=== PATIENT | female | born 1945 | race Two or more races ===

== ENCOUNTER 2018-10-27 13:50 | Emergency (ER) | payer OTHER ==
[~2018-10-27] VITALS: Ht 165.1 cm; Wt 75.7 kg
[2018-10-27 14:57] LABS: Urine Bacteria NONE SEEN /hpf (None Seen); Urine Blood Negative /uL (Negative); Urine Mucus FEW (None Seen); Urine WBC 1 /hpf (0 - 5)
[2018-10-27 15:39] LABS: Basophils # (auto) 0 uL; Basophils % (auto) 0.4 % (0.0-2.0); Eosinophils # (auto) 0 uL; Eosinophils % (auto) 0.2 % (0.0-7.0); Hematocrit 39.1 % (36.0-46.0); Hemoglobin 13.1 g/dL (12.2-16.2); Lymphocytes # (auto) 1.5 uL; Lymphocytes % (auto) 14.7 % (10.0-50.0); Mean Corpuscular Hemoglobin 29.4 pg (28.0-32.0); Mean Corpuscular Hgb Conc. 33.5 g/dL (32.0-36.0); Mean Corpuscular Volume 87.9 fL (80.0-100.0); Monocytes # (auto) 0.6 uL; Monocytes % (auto) 5.9 % (0.0-12.0); Neutrophils # (auto) 7.9 uL; Neutrophils % (auto) 78.8 % (37.0-80.0); Platelet Count (auto) 231 10^3/uL (140-450); Red Blood Cells 4.45 10^6/uL (4.0-5.20); Red Cell Distribution Width 14.4 % (11.8-14.3); White Blood Cell 10.1 10^3/uL (4.4-10.8)
[2018-10-27 16:05] LABS: Albumin 3.9 g/dL (3.4-5.0); Anion Gap 8 (5-15); Blood Urea Nitrogen 18 mg/dL (7-18); Calcium 9.2 mg/dL (8.5-10.1); Carbon Dioxide 26 mmol/L (21-32); Chloride 104 mmol/L (98-107); Glucose 129 mg/dL (74-106); Lipase 195 U/L (73-393); Potassium 3.6 mmol/L (3.5-5.1); Sodium 138 mmol/L (136-145)
[2018-10-27 16:12] LABS: Alanine Aminotransferase 48 U/L (13-56); Alkaline Phosphatase 113 U/L (45-117); Aspartate Aminotransferase 78 U/L (15-37); BUN/Creatinine Ratio 22.8; Bilirubin, Total 0.7 mg/dL (0.2-1.0); GFR African American 92 mL/min; GFR Non-African American 76 mL/min; Total Protein 7.9 g/dL (6.4-8.2)
[2018-10-28] MEDS ORDERED: SODIUM CHLORIDE 0.9% 1,000 ML IV ONE
[2018-10-28 03:06] VITALS: BP 136/72
== END 2018-10-28 04:08 | disposition home or self-care (01) ==
LOC: ER 14:04
DX: N28.1 Cyst of kidney, acquired (principal); I10 Essential (primary) hypertension; Z90.49 Acquired absence of other specified parts of digestive tract; Z98.51 Tubal ligation status
CPT/HCPCS: 36415; 74176; 80053; 81001; 83690; 84484; 85025; 93005

== ENCOUNTER 2019-08-31 09:32 | Inpatient (IN) | payer MEDICARE, OTHER ==
[~2019-08-31] VITALS: Ht 157.5 cm; Wt 69.0 kg
[2019-08-31] MEDS ORDERED: SODIUM CHLORIDE 0.9% 500 ML IV ONE (10:31)
[2019-08-31] MEDS ORDERED: SODIUM CHLORIDE 0.9% 1,000 ML IV ONE (10:31)
[2019-08-31] MEDS ORDERED: ZINC SULFATE 220mg CAP or TAB PO ONE (10:45)
[2019-08-31] MEDS ORDERED: AZITHROMYCIN 500MG/ 250ML 250 ML IV ONE (10:45)
[2019-08-31] MEDS ORDERED: DexAMETHasone SOD PHOS 4 MG/1ML SDV INJ IV ONE (10:45)
[2019-08-31] MEDS ORDERED: cefTRIAXone 1GM/50ML D5W 50 ML IV ONE (10:45)
[2019-08-31] MEDS ORDERED: ASCORBIC ACID 500 MG TAB PO ONE (10:45)
[2019-08-31 11:16] LABS: Basophils # (auto) 0 10 ^3/uL (0-0.2); Basophils % (auto) 0.1 % (0.0-2.0); Eosinophils # (auto) 0 10 ^3/uL (0-0.8); Hematocrit 38.4 % (36.0-46.0); Hemoglobin 12.8 g/dL (12.2-16.2); Lymphocytes # (auto) 0.7 10 ^3/uL (0.4-5.4); Lymphocytes % (auto) 4.4 % (10.0-50.0); Mean Corpuscular Hemoglobin 29.2 pg (28.0-32.0); Mean Corpuscular Hgb Conc. 33.3 g/dL (32.0-36.0); Mean Corpuscular Volume 87.8 fL (80.0-100.0); Monocytes # (auto) 0.3 10 ^3/uL (0-1.3); Monocytes % (auto) 2.2 % (0.0-12.0); Neutrophils # (auto) 14.9 10 ^3/uL (1.6-8.6); Neutrophils % (auto) 93.3 % (37.0-80.0); Platelet Count (auto) 274 10^3/uL (140-450); Red Blood Cells 4.38 10^6/uL (4.0-5.20); Red Cell Distribution Width 14.2 % (11.8-14.3)
[2019-08-31 11:22] LABS: Albumin 2.9 g/dL (3.4-5.0); Anion Gap 7 (5-15); Blood Urea Nitrogen 17 mg/dL (7-18); Calcium 9.1 mg/dL (8.5-10.1); Carbon Dioxide 28 mmol/L (21-32); Chloride 99 mmol/L (98-107); Glucose 171 mg/dL (74-106); Magnesium 2.4 mg/dL (1.6-2.6); Potassium 3.9 mmol/L (3.5-5.1); Sodium 134 mmol/L (136-145)
[2019-08-31 11:30] LABS: Alanine Aminotransferase 51 U/L (13-56); Alkaline Phosphatase 99 U/L (45-117); Aspartate Aminotransferase 28 U/L (15-37); BUN/Creatinine Ratio 19.5; Bilirubin, Total 0.7 mg/dL (0.2-1.0); GFR African American 82 mL/min; GFR Non-African American 68 mL/min; Total Protein 7.5 g/dL (6.4-8.2)
[2019-08-31] MEDS ORDERED: MORPHINE SULF INJ 2 MG/ML SYRINGE 1ML IV PRN (14:00)
[2019-08-31] MEDS ORDERED: DEXTROSE (50%) 50ML SYRG IV PRN (14:00)
[2019-08-31] MEDS ORDERED: TEMAZEPAM 15 MG CAP PO PRN (14:00)
[2019-08-31] MEDS ORDERED: traMADol HCL 50 MG TAB PO PRN (14:00)
[2019-08-31] MEDS ORDERED: ONDANSETRON HCL 4 MG/2 ML VIAL IV PRN (14:00)
[2019-08-31] MEDS ORDERED: NITROGLYCERIN 0.4 MG SL TAB SL PRN (14:00)
[2019-08-31] MEDS ORDERED: ACETAMINOPHEN 500 MG TAB PO PRN ×2 (14:00)
[2019-08-31] MEDS: methylPREDNISolone SOD SUCC 40 MG/ML VL IV SCH (14:56)
[2019-08-31] MEDS: SODIUM CHLORIDE 0.9% 1,000 ML IV SCH (14:56)
[2019-08-31] MEDS: CLINDAMYCIN 600MG IV 50 ML IV SCH ×2 (14:57→22:49)
[2019-08-31 16:33] VITALS: BP 103/51
--- NOTE | 2019-08-31 16:33 | NUR ---
Telemetry admit from ER [place] G[place]IA admitted to Telemetry unit after SBAR received. Patient oriented to JOVANNI VILLAGOMEZ, primary RN, unit, room, bed, and unit policies regarding patient care and visiting hours. Patient now on continuous telemetry monitoring, tele box # 4. Patient placed on bedside oxygen AT 12L via non-rebreather mask, weighed by bedscale and encouraged to call if they need something. All questions and concerns addressed, patient verbalized understanding.
[2019-08-31 17:00] VITALS: BP 103/51
[2019-08-31] MEDS ORDERED: NAPR375T27 PO (17:20)
[2019-08-31] MEDS ORDERED: ENAL2.5T PO (17:20)
[2019-08-31] MEDS ORDERED: PRED20TA2 PO (17:20)
[2019-08-31] MEDS ORDERED: ATOR10TA52 PO (17:20)
[2019-08-31] MEDS ORDERED: GLIP5TAB12 PO (17:20)
[2019-08-31] MEDS ORDERED: GABA100C9 PO (17:20)
[2019-08-31] MEDS ORDERED: ASPI-404 PO (17:20)
[2019-08-31] MEDS ORDERED: SENN-58 PO (17:20)
[2019-08-31] MEDS: ACCU-CHEK COMFORT CURVE STRIP VI SCH (18:17)
[2019-08-31] MEDS: InsuLIN REG 1unit/0.01ml Soln (100units/ml) SC SCH (18:18)
--- NOTE | 2019-08-31 18:47 | NUR ---
PT TOLERATING NON REBREATHER MASK WELL. CHANGED TO OXYMIZER AT 10L. O2 AT 94%. PT TOLERATING WELL. WILL CONTINUE TO MONITOR.
[2019-08-31 22:00] VITALS: BP 134/59
[2019-08-31] MEDS: ALBUTEROL SULF HFA 90MCG INH 200DOSE IN SCH (22:18)
[2019-08-31] MEDS: ENOXAPARIN SOD 40 MG/0.4 ML SYRINGE SC SCH (22:49)
[2019-09-01] VITALS (7 sets, daily range): BP systolic 113–134; BP diastolic 54–84
[2019-09-01] MEDS: ACCU-CHEK COMFORT CURVE STRIP VI SCH ×5 (00:34→21:50)
[2019-09-01] MEDS: InsuLIN REG 1unit/0.01ml Soln (100units/ml) SC SCH ×5 (00:37→21:51)
--- NOTE | 2019-09-01 01:12 | NUR ---
PATIENTS O2 DROPPED DOWN TO 80% AFTER USING RESTROOM, APPLIED NON REBREATHER MASK. PATIENT TOLERATING WELL SATURATING AT 92%. WILL CONTINUE TO MONITOR.
[2019-09-01] MEDS: methylPREDNISolone SOD SUCC 40 MG/ML VL IV SCH ×2 (03:46→14:08)
[2019-09-01] MEDS: SODIUM CHLORIDE 0.9% 1,000 ML IV SCH ×2 (03:47→17:11)
[2019-09-01] MEDS: ALBUTEROL SULF HFA 90MCG INH 200DOSE IN SCH ×3 (05:37→22:50)
[2019-09-01 05:38] LABS: Basophils # (auto) 0 10 ^3/uL (0-0.2); Basophils % (auto) 0.1 % (0.0-2.0); Eosinophils # (auto) 0 10 ^3/uL (0-0.8); Hematocrit 33.9 % (36.0-46.0); Hemoglobin 11.5 g/dL (12.2-16.2); Lymphocytes # (auto) 0.4 10 ^3/uL (0.4-5.4); Lymphocytes % (auto) 2.9 % (10.0-50.0); Mean Corpuscular Hemoglobin 30.1 pg (28.0-32.0); Mean Corpuscular Hgb Conc. 34.1 g/dL (32.0-36.0); Mean Corpuscular Volume 88.4 fL (80.0-100.0); Monocytes # (auto) 0.3 10 ^3/uL (0-1.3); Neutrophils # (auto) 13.3 10 ^3/uL (1.6-8.6); Platelet Count (auto) 276 10^3/uL (140-450); Red Blood Cells 3.83 10^6/uL (4.0-5.20)
[2019-09-01] MEDS: CLINDAMYCIN 600MG IV 50 ML IV SCH ×3 (05:38→21:54)
[2019-09-01 05:59] LABS: Albumin 2.4 g/dL (3.4-5.0); BUN/Creatinine Ratio 19.7; Calcium 8.6 mg/dL (8.5-10.1); Potassium 3.8 mmol/L (3.5-5.1)
[2019-09-01 06:02] LABS: Bilirubin, Total 0.5 mg/dL (0.2-1.0); Total Protein 6.5 g/dL (6.4-8.2)
--- NOTE | 2019-09-01 08:35 | NUR ---
OPENING SHIFT NOTE Resumed care of patient. PT is alert and oriented. No S/S of distress/SOB. PT on 10L O2 via Oxymizer. Instructed on POC and to call for assist PRN. Bed in lowest locked position, call light within reach, side rails up x2, fall precautions in place. Will continue to monitor for changes Q1hr and PRN.
[2019-09-01] MEDS: ENOXAPARIN SOD 40 MG/0.4 ML SYRINGE SC SCH ×2 (10:34→21:54)
[2019-09-01] MEDS: levoFLOXacin 500MG 100 ML IV SCH (10:34)
[2019-09-01] MEDS: ASCORBIC ACID 1,000 MG TAB PO SCH (10:35)
[2019-09-01] MEDS: CHOLECALCIFEROL (VITD3) 1,000UNIT=25mCg TAB PO SCH (10:35)
[2019-09-01] MEDS: ZINC SULFATE 220mg CAP or TAB PO SCH (10:35)
[2019-09-01] MEDS ORDERED: LEVOTHYROXINE SODIUM 25 MCG TAB PO ONE (11:00)
--- NOTE | 2019-09-01 14:45 | NUR ---
RT NOTE: WHILE IN WITH NEXT DOOR PT, RN STATED THAT WHILE USING THE CAMODE, SPO2 DROPPED TO MID 70s. HE PLACED PT ONTO 15L NON-REBREATHER. PT DENIES ANY SOB. SPO2 HOLDING AT 91-92%. AT THIS TIME, PT IS LEFT ON NRB. WILL CONTINUE TO MONITOR.
--- NOTE | 2019-09-01 15:15 | NUR ---
PT 02 DESAT TO 79% WHILE USING BSC. PLACED ON NON REBREATHER AT 13L. PT 02 SAT NOW AT 91%. RT ASSESSED PT.
--- NOTE | 2019-09-01 22:59 | NUR ---
Opening Shift Note Assumed care of patient, awake and alert. No S/S of distress/SOB or pain. Patient on 14L Oxymizer Instructed on POC and to call for assist PRN, will continue to monitor for changes Q1hr and PRN.
[2019-09-02] MEDS: methylPREDNISolone SOD SUCC 40 MG/ML VL IV SCH ×3 (01:59→21:07)
[2019-09-02 05:15] VITALS: BP 136/68
[2019-09-02] MEDS: ALBUTEROL SULF HFA 90MCG INH 200DOSE IN SCH ×3 (06:00→23:23)
[2019-09-02] MEDS: SODIUM CHLORIDE 0.9% 1,000 ML IV SCH (06:00)
[2019-09-02] MEDS: CLINDAMYCIN 600MG IV 50 ML IV SCH (06:25)
[2019-09-02] MEDS: ACCU-CHEK COMFORT CURVE STRIP VI SCH ×4 (06:35→23:24)
[2019-09-02] MEDS: InsuLIN REG 1unit/0.01ml Soln (100units/ml) SC SCH ×4 (06:35→23:25)
[2019-09-02] MEDS ORDERED: LEVOTHYROXINE SODIUM 25 MCG TAB PO SCH (07:00)
--- NOTE | 2019-09-02 07:04 | NUR ---
Closing Note Patient status has not change, endorsed care to dayshift nurse.
[2019-09-02 08:00] VITALS: BP 122/69
[2019-09-02 09:13] VITALS: BP 122/69
[2019-09-02] MEDS: levoFLOXacin 500MG 100 ML IV SCH (10:00)
[2019-09-02] MEDS: ZINC SULFATE 220mg CAP or TAB PO SCH (10:01)
[2019-09-02] MEDS: ASCORBIC ACID 1,000 MG TAB PO SCH (10:01)
[2019-09-02] MEDS: CHOLECALCIFEROL (VITD3) 1,000UNIT=25mCg TAB PO SCH (10:02)
[2019-09-02] MEDS: ENOXAPARIN SOD 40 MG/0.4 ML SYRINGE SC SCH ×2 (10:02→23:23)
[2019-09-02] MEDS ORDERED: POTASSIUM CHL 20 Meq TABLET PO ONE (12:30)
[2019-09-02] MEDS ORDERED: FUROSEMIDE 40 MG/4 ML VIAL IV ONE (12:30)
[2019-09-02] MEDS ORDERED: DEXTROSE (50%) 50ML SYRG IV PRN (12:45)
[2019-09-02 13:00] VITALS: BP 119/76
[2019-09-02 13:58] LABS: Ferritin 436.4 ng/mL (10-322); Free T4 (Free Thyroxine) 0.55 ng/dL (0.89-1.76)
[2019-09-02 13:59] LABS: Free T3 0.44 pg/mL (2.3-4.2)
[2019-09-02 16:59] VITALS: BP 115/71
[2019-09-02] MEDS: Glucerna Carbsteady SHAKE Chocolate 8oz PO SCH (17:30)
--- NOTE | 2019-09-02 20:00 | NUR ---
Opening Shift Note Assumed care of patient, awake and alert x4. Patient is on 15L/min nonrebreather, SPO2: 92% at this time. Patient denies pain or shortness of breath at this time. No sign/symptoms of distress noted or verbalized at this time. Instructed on plan of care and encouraged to call for assistance as needed, patient verbalized understanding. Bed is locked in lowest position, side rails x 2 are up, call light is within reach, and bed alarm is on.
[2019-09-02] MEDS: diphenhdrAMINE HCL 50 MG/1 ML VL IV SCH (21:06)
[2019-09-02] MEDS: ACETAMINOPHEN 650 mg PER 20 mL UD PO SCH (21:07)
[2019-09-02] MEDS: TOCILIZUMAB 400 MG in SODIUM CHL 0.9% 80 ML IV SCH (21:41)
[2019-09-02 22:00] VITALS: BP 112/64
[2019-09-02] MEDS: INSULIN LANTUS (GLARGINE) 1 /0.01ml (100units/ml) SC SCH (23:24)
--- NOTE | 2019-09-03 02:00 | NUR ---
Convalescent Plasma Per blood bank no update on convalescent plasma yet.
[2019-09-03] MEDS: methylPREDNISolone SOD SUCC 40 MG/ML VL IV SCH ×3 (02:44→14:00)
[2019-09-03 05:00] VITALS: BP 127/80
[2019-09-03] MEDS: LEVOTHYROXINE SODIUM 50 MCG TAB PO SCH (06:10)
[2019-09-03] MEDS: ALBUTEROL SULF HFA 90MCG INH 200DOSE IN SCH ×3 (06:10→22:23)
[2019-09-03] MEDS: ACCU-CHEK COMFORT CURVE STRIP VI SCH ×4 (06:23→22:39)
[2019-09-03] MEDS: InsuLIN REG 1unit/0.01ml Soln (100units/ml) SC SCH ×4 (06:24→22:43)
[2019-09-03 08:00] VITALS: BP 114/51
[2019-09-03] MEDS: levoFLOXacin 500MG 100 ML IV SCH (08:46)
[2019-09-03] MEDS: ASCORBIC ACID 1,000 MG TAB PO SCH (08:46)
[2019-09-03] MEDS: Glucerna Carbsteady SHAKE Chocolate 8oz PO SCH ×2 (08:46→17:40)
[2019-09-03] MEDS: ZINC SULFATE 220mg CAP or TAB PO SCH (08:46)
[2019-09-03] MEDS: ENOXAPARIN SOD 40 MG/0.4 ML SYRINGE SC SCH ×2 (08:47→22:24)
[2019-09-03] MEDS: CHOLECALCIFEROL (VITD3) 1,000UNIT=25mCg TAB PO SCH (08:47)
[2019-09-03 09:00] VITALS: BP 114/51
[2019-09-03] MEDS ORDERED: ACETAMINOPHEN 650 mg PER 20 mL UD PO ONE (10:30)
[2019-09-03] MEDS ORDERED: diphenhdrAMINE HCL 50 MG/1 ML VL IV ONE (10:30)
[2019-09-03] MEDS ORDERED: methylPREDNISolone SOD SUCC 40 MG/ML VL IV ONE (10:30)
[2019-09-03] MEDS: ACETAMINOPHEN 650 mg PER 20 mL UD PO SCH (11:00)
[2019-09-03] MEDS: diphenhdrAMINE HCL 50 MG/1 ML VL IV SCH (11:00)
[2019-09-03] MEDS: TOCILIZUMAB 400 MG in SODIUM CHL 0.9% 80 ML IV SCH (11:41)
--- NOTE | 2019-09-03 12:54 | NUR ---
Nutrition Assessment Notes please see attached link for complete assessment Est energy needs BW 72 [id number] kcal (23-25kcal/kg), Est protein needs: 72-79g (1.0-1.1g/kg BW). Will reassess prn Addendum: 09/03/19 at [address] Amended: Links added.
[2019-09-03 13:00] VITALS: BP 113/65
[2019-09-03 17:00] VITALS: BP 106/66
--- NOTE | 2019-09-03 20:00 | NUR ---
Opening Shift Note Assumed care of patient, awake and alert x4. Patient is on 15L/min nonrebreather, SPO2: 90% at this time. Patient denies pain or shortness of breath at this time. No sign/symptoms of distress noted or verbalized at this time. Instructed on plan of care and encouraged to call for assistance as needed, patient verbalized understanding. Bed is locked in lowest position, side rails x 2 are up, call light is within reach, and bed alarm is on.
[2019-09-03 22:00] VITALS: BP 114/64
[2019-09-03] MEDS: INSULIN LANTUS (GLARGINE) 1 /0.01ml (100units/ml) SC SCH (22:42)
[2019-09-04] VITALS (7 sets, daily range): BP systolic 105–132; BP diastolic 57–76
--- NOTE | 2019-09-04 00:19 | NUR ---
Spoke with Blood Bank RE: Convalescent Plasma Spoke with Beto from blood bank regarding status on convalescent plasma. Per Beto, we are still waiting on [facility].
--- NOTE | 2019-09-04 00:30 | NUR ---
Low Oxygen Saturation Patient's oxygen saturation is sustaining between 86-89% on 15L/min nonrebreather at this time.This RN has repositioned patient and instructed patient to take deep breaths, no improvement in oxygen saturation noted. Patient's HR is 67 and RR is 24 at this time. Patient is laying in bed with even and unlabored respirations. Patient denies shortness of breath at this time. No sign/symptoms of distress noted or verbalized at this time. No use of accessory muscles noted at this time. Will page respiratory therapist.
--- NOTE | 2019-09-04 00:37 | NUR ---
Spoke with Respiratory Therapist RE: Low Oxygen Saturation Spoke with RT Julissa regarding patient's oxygen saturation. RT recommends proning patient. Per RT she will speak to her director regarding patient's oxygen saturation.
--- NOTE | 2019-09-04 00:50 | NUR ---
Attempted to Prone Patient Attempted to prone patient per RT's recommendation due to oxygen desaturation. Patient was not able to tolerate proning. Patient is now laying on her lateral right side, patient is tolerating well. Oxygen saturation at this time is 92% on 15L/min nonrebreather. Patient denies shortness of breath at this time. No sign/symptoms of distress noted or verbalized at this time. Bed is locked in lowest position, side rails x 2 are up, call light is within reach, and bed alarm is on. Will continue care.
--- NOTE | 2019-09-04 01:42 | NUR ---
Rounds Patient is laying on her lateral right side, eyes closed, with even and unlabored respirations. SPO2: 94% on 15L/min nonrebreather at this time. No sign/symptoms of distress noted at this time. Will continue care.
[2019-09-04] MEDS: methylPREDNISolone SOD SUCC 40 MG/ML VL IV SCH ×2 (01:51→15:12)
--- NOTE | 2019-09-04 03:50 | NUR ---
Rounds Patient is laying on her lateral side, eyes closed, with even and unlabored respirations. SPO2: 92% on 15L/min nonrebreather at this time. No sign/symptoms of distress noted at this time. Will continue care.
[2019-09-04] MEDS: InsuLIN REG 1unit/0.01ml Soln (100units/ml) SC SCH ×4 (06:26→22:05)
[2019-09-04] MEDS: ACCU-CHEK COMFORT CURVE STRIP VI SCH ×4 (06:26→21:59)
[2019-09-04] MEDS: LEVOTHYROXINE SODIUM 50 MCG TAB PO SCH (06:26)
[2019-09-04] MEDS: ALBUTEROL SULF HFA 90MCG INH 200DOSE IN SCH ×3 (06:26→23:39)
--- NOTE | 2019-09-04 06:26 | NUR ---
IV Removal IV to left AC DC'd. IV DC'd with clean sterile technique, catheter fully intact. Pressure dressing applied to site. Patient tolerated well.
[2019-09-04 06:45] LABS: Basophils # (auto) 0 10 ^3/uL (0-0.2); Basophils % (auto) 0.1 % (0.0-2.0); Eosinophils # (auto) 0 10 ^3/uL (0-0.8); Hematocrit 37.2 % (36.0-46.0); Hemoglobin 12.8 g/dL (12.2-16.2); Lymphocytes # (auto) 0.5 10 ^3/uL (0.4-5.4); Lymphocytes % (auto) 4.3 % (10.0-50.0); Mean Corpuscular Hemoglobin 29.7 pg (28.0-32.0); Mean Corpuscular Hgb Conc. 34.2 g/dL (32.0-36.0); Mean Corpuscular Volume 86.6 fL (80.0-100.0); Monocytes # (auto) 0.2 10 ^3/uL (0-1.3); Monocytes % (auto) 1.4 % (0.0-12.0); Neutrophils % (auto) 94.2 % (37.0-80.0); Platelet Count (auto) 424 10^3/uL (140-450); White Blood Cell 10.6 10^3/uL (4.4-10.8)
[2019-09-04 07:09] LABS: Albumin 2.4 g/dL (3.4-5.0); Bilirubin, Total 0.6 mg/dL (0.2-1.0); Calcium 9.3 mg/dL (8.5-10.1); Total Protein 6.8 g/dL (6.4-8.2)
--- NOTE | 2019-09-04 07:20 | NUR ---
Closing Shift Note Patient is on nonrebreather 15L/min, SPO2: 92% at this time. No sign/symptoms of distress noted or verbalized at this time. Patient denies shortness of breath at this time. Endorsed patient care to David JAIN.
[2019-09-04] MEDS: Glucerna Carbsteady SHAKE Chocolate 8oz PO SCH ×2 (09:54→18:09)
[2019-09-04] MEDS: ZINC SULFATE 220mg CAP or TAB PO SCH (10:08)
[2019-09-04] MEDS: levoFLOXacin 500MG 100 ML IV SCH (10:09)
[2019-09-04] MEDS: ENOXAPARIN SOD 40 MG/0.4 ML SYRINGE SC SCH ×2 (10:09→21:59)
[2019-09-04] MEDS: CHOLECALCIFEROL (VITD3) 1,000UNIT=25mCg TAB PO SCH (10:09)
[2019-09-04] MEDS: ASCORBIC ACID 1,000 MG TAB PO SCH (10:09)
[2019-09-04] MEDS ORDERED: FUROSEMIDE 40 MG/4 ML VIAL IV ONE (13:45)
--- NOTE | 2019-09-04 14:15 | NUR ---
VERBAL CONSENT FOR HYDROXYCHLOROQUINE OBTAINED FROM PATIENT BY SUSY LOZOYA. RISKS EXPLAINED WITH PATIENT VERBALIZING UNDERSTANDING TO SAID NURSE
--- NOTE | 2019-09-04 14:58 | NUR ---
assessment Patient is a 74 year old female who is Covid positive. Per patients daughter Candelaria prior to admission patient lived home with her and family and was independent. Patient has oxygen for home use. Per Candelaria patient had a fever and became confused so she called 911. Patient was admitted. Patient is now on 15L of oxygen. I informed Candelaria patients post discharge needs to be determined closer to discharge. I will continue to monitor and follow up as appropriate. Candelaria verbalized understanding. Addendum: 09/04/19 at 1507 by Jerilyn IGLESIAS Amended: Links added.
[2019-09-04] MEDS: FUROSEMIDE 40 MG/4 ML VIAL IV SCH (18:12)
--- NOTE | 2019-09-04 19:30 | NUR ---
OPENING SHIFT NOTE Assumed care of patient who is Alert and oriented; Singaporean speaking. Currently on 15L via non-rebreather. Reports SOB with exertion and generalized weakness/fatigue. PIV in left forearm is intact and patent. Flushed with 10ml NS. patient is ambulatory at baseline, however requires moderate assistance to BSC at this time due to weakness and fatigue. Bed is in low locked position with side rails up x2. Call light is within reach and patient encouraged to call for assistance when needed. Will continue to monitor for changes PRN.
--- NOTE | 2019-09-04 20:45 | NUR ---
Received call from blood bank informing that convalescent plasma is available. Requested call back when ready to have defrosted.
--- NOTE | 2019-09-04 21:30 | NUR ---
IV insertion IV access obtained, via clean sterile technique by inserting 20 gauge catheter at left wrist after 1 attempt. IV secured properly. No trauma to site. Patient tolerated well.
[2019-09-04] MEDS: hydrOXYchloroQUINE SULFATE 200 MG TAB PO SCH (21:58)
[2019-09-04] MEDS: INSULIN LANTUS (GLARGINE) 1 /0.01ml (100units/ml) SC SCH (22:06)
[2019-09-05] VITALS (8 sets, daily range): BP systolic 88–125; BP diastolic 60–75
[2019-09-05] MEDS: methylPREDNISolone SOD SUCC 40 MG/ML VL IV SCH ×2 (02:19→13:48)
--- NOTE | 2019-09-05 03:53 | NUR ---
TRANSFUSION COMPLETE Convalescent plasma transfusion complete. Patient tolerated well. No adverse reactions noted.
--- NOTE | 2019-09-05 05:16 | NUR ---
CONVALESCENT PLASMA Plasma transfusion initiated after measuring vital signs and verifying with two RNs. Addendum: 09/05/19 at 0519 by KAREN JOY RN RN incorrect time. Correct time is 0151.
[2019-09-05] MEDS: FUROSEMIDE 40 MG/4 ML VIAL IV SCH ×2 (06:39→17:48)
[2019-09-05] MEDS: LEVOTHYROXINE SODIUM 50 MCG TAB PO SCH (06:39)
[2019-09-05] MEDS: ACCU-CHEK COMFORT CURVE STRIP VI SCH ×4 (06:40→22:15)
[2019-09-05] MEDS: InsuLIN REG 1unit/0.01ml Soln (100units/ml) SC SCH ×4 (06:42→22:17)
--- NOTE | 2019-09-05 07:27 | NUR ---
LOW o2 SATURATION Patient O2 Saturation is at 81% on 15L non-rebreather. Patient is currently on the bed welch and non-rebreather mask poorly fitted on face. Mask adjusted, patient taken off bedpan and cleaned. Encouraged self proning, however patient states that she cannot tolerated lying prone. Patient positioned onto her right side. Spo2 increased to 95%
[2019-09-05] MEDS: ALBUTEROL SULF HFA 90MCG INH 200DOSE IN SCH ×3 (07:40→22:20)
--- NOTE | 2019-09-05 07:40 | NUR ---
RT NOTE: ATTEMPTED TO TITRATE PT TO SIMPLE MASK FROM NON-REBREATHER BUT SPO2 IMMEDIATELY DROPPED FROM 91% TO MID 80s. PLACED BACK ONTO 15L NRB. WILL CONTINUE TO MONITOR.
[2019-09-05] MEDS: Glucerna Carbsteady SHAKE Chocolate 8oz PO SCH ×2 (08:00→17:48)
[2019-09-05] MEDS: CHOLECALCIFEROL (VITD3) 1,000UNIT=25mCg TAB PO SCH (10:29)
[2019-09-05] MEDS: ENOXAPARIN SOD 40 MG/0.4 ML SYRINGE SC SCH ×2 (10:30→22:15)
[2019-09-05] MEDS: ASCORBIC ACID 1,000 MG TAB PO SCH (10:30)
[2019-09-05] MEDS: ZINC SULFATE 220mg CAP or TAB PO SCH (10:30)
[2019-09-05] MEDS: hydrOXYchloroQUINE SULFATE 200 MG TAB PO SCH ×2 (10:30→22:14)
[2019-09-05] MEDS: levoFLOXacin 500MG 100 ML IV SCH (10:31)
--- NOTE | 2019-09-05 19:30 | NUR ---
opening note pt A&Ox4. pt on 15L non rebreather mask. pt denies pain at this time. pt is very weak, and is unable to reach BSC without spo2 levels decreasing. pt advised that a bed welch would be a better option, to avoid O2 desaturation. POC discussed. bed in low locked position, call light within reach.
[2019-09-05] MEDS: INSULIN LANTUS (GLARGINE) 1 /0.01ml (100units/ml) SC SCH (22:18)
[2019-09-06] MEDS: methylPREDNISolone SOD SUCC 40 MG/ML VL IV SCH ×2 (01:48→13:56)
[2019-09-06 05:57] VITALS: BP 107/68
[2019-09-06] MEDS: ACCU-CHEK COMFORT CURVE STRIP VI SCH ×4 (06:09→22:08)
[2019-09-06] MEDS: LEVOTHYROXINE SODIUM 50 MCG TAB PO SCH (06:10)
[2019-09-06] MEDS: FUROSEMIDE 40 MG/4 ML VIAL IV SCH ×2 (06:10→17:35)
[2019-09-06] MEDS: InsuLIN REG 1unit/0.01ml Soln (100units/ml) SC SCH ×4 (06:11→22:00)
--- NOTE | 2019-09-06 07:15 | NUR ---
Closing note Pt is awake and alert x4. respirations are even and nonlabored on 15L non rebreather mask. Spo2 saturation is currently at 89-90. No fever at this time. no c/o pain or discomfort. Endorsed care to day shift RN. Bed in low locked position, call light within reach.
[2019-09-06] MEDS: ALBUTEROL SULF HFA 90MCG INH 200DOSE IN SCH ×3 (07:18→22:00)
[2019-09-06 08:37] VITALS: BP 109/67
[2019-09-06] MEDS: Glucerna Carbsteady SHAKE Chocolate 8oz PO SCH ×2 (11:12→17:34)
[2019-09-06] MEDS: ENOXAPARIN SOD 40 MG/0.4 ML SYRINGE SC SCH (11:12)
[2019-09-06] MEDS: hydrOXYchloroQUINE SULFATE 200 MG TAB PO SCH ×2 (11:12→22:08)
[2019-09-06] MEDS: levoFLOXacin 500MG 100 ML IV SCH (11:12)
[2019-09-06] MEDS: ZINC SULFATE 220mg CAP or TAB PO SCH (11:12)
[2019-09-06] MEDS: ASCORBIC ACID 1,000 MG TAB PO SCH (11:12)
[2019-09-06] MEDS: CHOLECALCIFEROL (VITD3) 1,000UNIT=25mCg TAB PO SCH (11:13)
[2019-09-06 12:30] VITALS: BP 101/68
[2019-09-06] MEDS ORDERED: levoFLOXacin 500MG 100 ML IV SCH (14:45)
--- NOTE | 2019-09-06 15:45 | NUR ---
Nutrition Followup Notes Pt wt is 72.2 kg Unable to speak to pt d/t pt is positive for COVID. Pt is with a CCHO 60g diet, appetite is very poor aeb ave 9% PO intake over 5 meals. Will continue to monitor PO status, skin status, pertinent labs and weight trends. Will f/u in 3-5 days. Est energy needs BW 72 [id number] kcal (23-25kcal/kg), Est protein needs: 72-79g (1.0-1.1g/kg BW). Will reassess prn LABS: Gluc 152 H, A1c 6.8 H, Alb 2.4 L GI: Pt had 1 BM on 09/05 per RN doc BS: 15 mod risk. Refer to wound assessment report for full details. PES: Altered nutrition related lab values r.t current chronic medical condition aeb hyperglycemia mod hypoalb Comments 1) Refer to CDE on DC 2) Continue to closely monitor pt PO intake to meet at least 75% of meals 3) Continue current plan of care
[2019-09-06 16:59] VITALS: BP 104/31
--- NOTE | 2019-09-06 19:30 | NUR ---
Opening note pt is A&Ox4, and Bulgarian speaking. pt is on 15L non rebreather. SpO2 saturations are at 89%. pt denies pain or discomfort. bed in low locked position, call light within reach.
[2019-09-06 19:44] VITALS: BP 104/31
[2019-09-06 21:51] VITALS: BP 101/53
[2019-09-06] MEDS: ENOXAPARIN SOD 100 MG/1 ML SYRINGE SC SCH (22:08)
[2019-09-06] MEDS: INSULIN LANTUS (GLARGINE) 1 /0.01ml (100units/ml) SC SCH (22:13)
[2019-09-07 05:00] VITALS: BP 105/63
[2019-09-07 05:11] LABS: Hematocrit 44.7 % (36.0-46.0); Mean Corpuscular Hgb Conc. 33.7 g/dL (32.0-36.0); Mean Corpuscular Volume 86.2 fL (80.0-100.0); Platelet Count (auto) 430 10^3/uL (140-450); Red Blood Cells 5.19 10^6/uL (4.0-5.20); Red Cell Distribution Width 13.6 % (11.8-14.3)
[2019-09-07 05:30] LABS: Potassium 3.1 mmol/L (3.5-5.1)
[2019-09-07 05:35] LABS: Band Neutrophils % (manual) 0; Basophils % (manual) 0 (0.0-2.0); Blast Cells 0; Eosinophils % (manual) 0 (0-7); Metamyelocytes % 0; Myelocytes % 0; Promyelocytes % 0; Reactive Lymphocytes 0
[2019-09-07 05:36] LABS: BUN/Creatinine Ratio 42.2; Calcium 9.7 mg/dL (8.5-10.1)
[2019-09-07] MEDS: LEVOTHYROXINE SODIUM 50 MCG TAB PO SCH (06:20)
[2019-09-07] MEDS: ACCU-CHEK COMFORT CURVE STRIP VI SCH ×4 (06:20→22:11)
[2019-09-07] MEDS: InsuLIN REG 1unit/0.01ml Soln (100units/ml) SC SCH ×4 (06:20→22:18)
[2019-09-07] MEDS: FUROSEMIDE 40 MG/4 ML VIAL IV SCH ×2 (06:22→17:29)
[2019-09-07 06:36] LABS: Lymphocytes % (manual) 9 (10.0-50.0); Monocytes % (manual) 2 (0-12)
--- NOTE | 2019-09-07 07:13 | NUR ---
Closing note pt resting in semi fowlers with HOB at 30 degrees. respirations even and nonlabored on 15L non rebreather mask. spo2 saturation is 90%. pt denies pain or discomfort. Bed in low locked position, call light within reach. Endorsed care to day shift RN.
--- NOTE | 2019-09-07 07:59 | NUR ---
OPENING SHIFT NOTE Assumed care of patient. PT is awake and alert x4. Patient is on o2 at 15L via nonrebreather. No sign/symptoms of distress noted. Instructed on plan of care and encouraged to call for assistance as needed, patient verbalized understanding. Bed is locked in lowest position, side rails x 2 are up, call light is within reach, and bed alarm is on. Will continue to monitor.
[2019-09-07 09:00] VITALS: BP 98/71
[2019-09-07] MEDS: ALBUTEROL SULF HFA 90MCG INH 200DOSE IN SCH ×3 (09:19→23:11)
[2019-09-07] MEDS: Glucerna Carbsteady SHAKE Chocolate 8oz PO SCH ×2 (10:05→17:28)
[2019-09-07] MEDS: ZINC SULFATE 220mg CAP or TAB PO SCH (10:05)
[2019-09-07] MEDS: PANTOPRAZOLE 40 MG TAB PO SCH (10:06)
[2019-09-07] MEDS: hydrOXYchloroQUINE SULFATE 200 MG TAB PO SCH ×2 (10:06→22:10)
[2019-09-07] MEDS: ENOXAPARIN SOD 100 MG/1 ML SYRINGE SC SCH (10:06)
[2019-09-07] MEDS: CHOLECALCIFEROL (VITD3) 1,000UNIT=25mCg TAB PO SCH (10:06)
[2019-09-07] MEDS: ASCORBIC ACID 1,000 MG TAB PO SCH (10:06)
[2019-09-07 13:00] VITALS: BP 105/67
[2019-09-07] MEDS ORDERED: PIPERACILLIN-TAZOB 3.375GM 100 ML IV ONE (15:45)
[2019-09-07] MEDS ORDERED: VANCOMYCIN PER PHARMACY 0 MG IV SCH (15:45)
[2019-09-07 17:00] VITALS: BP 99/60
[2019-09-07] MEDS ORDERED: PIPERACILLIN-TAZOB 3.375GM 100 ML IV SCH (18:00)
--- NOTE | 2019-09-07 19:30 | NUR ---
OPENING SHIFT NOTE Assumed care of patient who is A&O x4, Slovenian speaking. Currently on 15L non- rebreather, currently sating at 90% Noted desaturation with activity. PIV in left wrist is intact and patent. Flushed with 10ml NS. Patient is currently on bedrest due to severe fatigue and weakness. Bed is in low locked position with side rails up x2. Call light is within reach. Patient encouraged to call for assistance when needed. Will continue to monitor for changes PRN.
[2019-09-07 20:00] VITALS: BP 107/61
[2019-09-07] MEDS ORDERED: VANCOMYCIN 1GM/250ML 250 ML IV ONE (20:00)
[2019-09-07 22:00] VITALS: BP 107/61
[2019-09-07] MEDS: ENOXAPARIN SOD 80 MG/0.8ML SYRINGE SC SCH (22:10)
[2019-09-07] MEDS: INSULIN LANTUS (GLARGINE) 1 /0.01ml (100units/ml) SC SCH (22:19)
[2019-09-08] MEDS: PIPERACILLIN-TAZOB 3.375GM 100 ML IV SCH ×4 (00:49→18:06)
[2019-09-08 05:00] VITALS: BP 88/60
[2019-09-08 05:37] LABS: Hematocrit 48.5 % (36.0-46.0); Hemoglobin 16.3 g/dL (12.2-16.2); Mean Corpuscular Hemoglobin 28.9 pg (28.0-32.0); Mean Corpuscular Hgb Conc. 33.5 g/dL (32.0-36.0); Mean Corpuscular Volume 86.2 fL (80.0-100.0); Platelet Count (auto) 446 10^3/uL (140-450); Red Blood Cells 5.63 10^6/uL (4.0-5.20); Red Cell Distribution Width 13.8 % (11.8-14.3); White Blood Cell 16.3 10^3/uL (4.4-10.8)
[2019-09-08 05:52] LABS: Band Neutrophils % (manual) 0; Basophils % (manual) 0 (0.0-2.0); Blast Cells 0; Metamyelocytes % 0; Myelocytes % 0; Promyelocytes % 0; Reactive Lymphocytes 0
[2019-09-08 05:53] LABS: Albumin 3.1 g/dL (3.4-5.0); Calcium 9.3 mg/dL (8.5-10.1)
[2019-09-08 05:57] LABS: BUN/Creatinine Ratio 40.5; Bilirubin, Total 1.1 mg/dL (0.2-1.0); Total Protein 7.2 g/dL (6.4-8.2)
[2019-09-08 06:00] LABS: Potassium 2.6 mmol/L (3.5-5.1)
[2019-09-08] MEDS: FUROSEMIDE 40 MG/4 ML VIAL IV SCH ×2 (06:02→18:00)
--- NOTE | 2019-09-08 06:02 | NUR ---
BLOOD PRESSURE CELL RELINER obtained and reported a blood pressure of 88/60, HR 84. Reassessed by this RN and blood pressure on right arm is 108/67, HR 89.
--- NOTE | 2019-09-08 06:04 | NUR ---
CRITICAL LAB Received call from Cintia in lab, reporting a Critical Potassium level of 2.6. Hospitalist paged to notify.
--- NOTE | 2019-09-08 06:26 | NUR ---
HOSPITALIST Received call from Hospitalist, Dr. Oseguera. New orders received. Read back and verified.
[2019-09-08] MEDS: ALBUTEROL SULF HFA 90MCG INH 200DOSE IN SCH ×3 (06:45→23:45)
[2019-09-08] MEDS: InsuLIN REG 1unit/0.01ml Soln (100units/ml) SC SCH ×4 (07:00→22:00)
[2019-09-08 07:05] LABS: Eosinophils % (manual) 1 (0-7); Lymphocytes % (manual) 6 (10.0-50.0); Monocytes % (manual) 2 (0-12)
--- NOTE | 2019-09-08 07:10 | NUR ---
IV insertion IV access obtained, via clean sterile technique by inserting 20 gauge catheter at rigth wrist after 1 attempt. IV secured properly. No trauma to site. Patient tolerated well.
[2019-09-08] MEDS: LEVOTHYROXINE SODIUM 50 MCG TAB PO SCH (07:12)
[2019-09-08] MEDS: POTASSIUM CHL 20MEQ/100ML 100 ML IV SCH ×5 (07:12→22:09)
[2019-09-08] MEDS: ACCU-CHEK COMFORT CURVE STRIP VI SCH ×4 (07:12→21:48)
[2019-09-08 08:46] VITALS: BP 102/57
--- NOTE | 2019-09-08 09:44 | NUR ---
PT C/O DRYNESS TO LIPS. DRY BLOOD OBSERVED ON LIPS. PT STATED THAT LIPS ARE DRY FROM O2 USE. PT GIVEN LIP BALM. WILL CONTINUE TO MONITOR.
[2019-09-08] MEDS: hydrOXYchloroQUINE SULFATE 200 MG TAB PO SCH ×2 (11:04→21:48)
[2019-09-08] MEDS: Glucerna Carbsteady SHAKE Chocolate 8oz PO SCH ×2 (11:04→18:05)
[2019-09-08] MEDS: ENOXAPARIN SOD 80 MG/0.8ML SYRINGE SC SCH ×2 (11:04→21:48)
[2019-09-08] MEDS: ZINC SULFATE 220mg CAP or TAB PO SCH (11:04)
[2019-09-08] MEDS: PANTOPRAZOLE 40 MG TAB PO SCH (11:04)
[2019-09-08] MEDS: ASCORBIC ACID 1,000 MG TAB PO SCH (11:04)
[2019-09-08] MEDS: CHOLECALCIFEROL (VITD3) 1,000UNIT=25mCg TAB PO SCH (11:05)
[2019-09-08] MEDS ORDERED: POTASSIUM EFFERVESENT TAB 25 MEQ PO ONE (11:15)
[2019-09-08 12:22] VITALS: BP 94/52
[2019-09-08] MEDS ORDERED: VANCOMYCIN 750mg/250ml 250 ML IV ONE (13:15)
--- NOTE | 2019-09-08 15:42 | NUR ---
02 TITRATED DOWN TO 12L VIA NON REBREATHER. PT 02 SAT BELOW 92%. PT NOW ON 13L VIA NO NON REBREATHER MASK. O2 SAT IS 93%. WILL CONTINUE TO MONITOR.
[2019-09-08 17:20] VITALS: BP 92/50
--- NOTE | 2019-09-08 18:41 | NUR ---
PT TOLERATING K RIDER INFUSION AT 25ML/HR. WILL ENDORSE BAG 3/3 TO NIGHT NURSE.
[2019-09-08] MEDS: POTASSIUM EFFERVESENT TAB 25 MEQ PO SCH (21:48)
[2019-09-08] MEDS: INSULIN LANTUS (GLARGINE) 1 /0.01ml (100units/ml) SC SCH (22:00)
--- NOTE | 2019-09-08 22:00 | NUR ---
BLOOD SUGAR Blood glucose measured and is 71mg/dl. Lantus held and patient given tony crackers and milk. Will reassess.
[2019-09-08] MEDS ORDERED: POTASSIUM CHL 20MEQ/100ML 100 ML IV ONE (22:01)
--- NOTE | 2019-09-08 22:59 | NUR ---
BLOOD PRESSURE RECEIVABLE CLERK reported a blood pressure of 83/56. Reassessed by this RN and is 93/50, HR 90 on left arm. Will continue to monitor.
[2019-09-08 23:10] VITALS: BP 83/56
[2019-09-09 05:28] VITALS: BP 104/60
[2019-09-09] MEDS: PIPERACILLIN-TAZOB 3.375GM 100 ML IV SCH ×4 (05:56→18:15)
[2019-09-09] MEDS: InsuLIN REG 1unit/0.01ml Soln (100units/ml) SC SCH ×4 (07:00→22:00)
[2019-09-09] MEDS: LEVOTHYROXINE SODIUM 50 MCG TAB PO SCH (07:15)
[2019-09-09] MEDS: ACCU-CHEK COMFORT CURVE STRIP VI SCH ×4 (07:16→22:12)
[2019-09-09 07:17] LABS: Hematocrit 44.4 % (36.0-46.0); Hemoglobin 14.9 g/dL (12.2-16.2); Mean Corpuscular Hemoglobin 29.3 pg (28.0-32.0); Mean Corpuscular Hgb Conc. 33.5 g/dL (32.0-36.0); Mean Corpuscular Volume 87.6 fL (80.0-100.0); Platelet Count (auto) 336 10^3/uL (140-450); Red Blood Cells 5.07 10^6/uL (4.0-5.20); Red Cell Distribution Width 13.9 % (11.8-14.3); White Blood Cell 14.8 10^3/uL (4.4-10.8)
[2019-09-09 07:33] LABS: Band Neutrophils % (manual) 0; Basophils % (manual) 0 (0.0-2.0); Blast Cells 0; Metamyelocytes % 0; Myelocytes % 0; Promyelocytes % 0; Reactive Lymphocytes 0
[2019-09-09 07:35] LABS: Albumin 2.6 g/dL (3.4-5.0); Calcium 8.7 mg/dL (8.5-10.1); Potassium 4.5 mmol/L (3.5-5.1)
[2019-09-09 07:38] LABS: BUN/Creatinine Ratio 32.7; Bilirubin, Total 1.1 mg/dL (0.2-1.0); Total Protein 6.1 g/dL (6.4-8.2)
[2019-09-09 08:03] LABS: Eosinophils % (manual) 3 (0-7); Lymphocytes % (manual) 5 (10.0-50.0); Monocytes % (manual) 2 (0-12)
[2019-09-09] MEDS: ALBUTEROL SULF HFA 90MCG INH 200DOSE IN SCH ×3 (08:35→22:15)
[2019-09-09 09:00] VITALS: BP_SYST 93; BP_SYST 96; BP_DIAS 56; BP_DIAS 62
[2019-09-09] MEDS: ZINC SULFATE 220mg CAP or TAB PO SCH (10:49)
[2019-09-09] MEDS: ASCORBIC ACID 1,000 MG TAB PO SCH (10:49)
[2019-09-09] MEDS: Glucerna Carbsteady SHAKE Chocolate 8oz PO SCH ×2 (10:49→18:15)
[2019-09-09] MEDS: hydrOXYchloroQUINE SULFATE 200 MG TAB PO SCH (10:49)
[2019-09-09] MEDS: PANTOPRAZOLE 40 MG TAB PO SCH (10:49)
[2019-09-09] MEDS: POTASSIUM EFFERVESENT TAB 25 MEQ PO SCH ×2 (10:50→22:11)
[2019-09-09] MEDS: CHOLECALCIFEROL (VITD3) 1,000UNIT=25mCg TAB PO SCH (10:50)
--- NOTE | 2019-09-09 11:00 | NUR ---
PT ON 12LPM NON-REBREATHER; O2SAT: 92% MD AT BEDSIDE ROUNDING. WILL CONTINUE TO MONITOR.
[2019-09-09] MEDS: ENOXAPARIN SOD 80 MG/0.8ML SYRINGE SC SCH ×2 (11:09→22:12)
[2019-09-09] MEDS: VANCOMYCIN 1GM/250ML 250 ML IV SCH (12:05)
--- NOTE | 2019-09-09 12:33 | NUR ---
Nutrition Followup Notes Wt: 69.4 kg Unable to speak to pt d/t pt is positive for COVID. Pt is with a CCHO 60g diet, with Glucerna 1 carton tid with adequte PO of 75% x 2 since last 1 day per RN doc. Will continue to monitor PO status, skin status, pertinent labs and weight trends. Will f/u in 3-5 days. Est energy needs BW 72 [id number] kcal (23-25kcal/kg), Est protein needs: 72-79g (1.0-1.1g/kg BW). Will reassess prn LABS: LIVIER 1.1 H, BUN 36 H, CREAT 1.1 H, ALB 2.6 L GI: Pt had 1 BM on 09/05 per RN doc BS: 15 mod risk. Refer to wound assessment report for full details. PES: Altered nutrition related lab values r.t current chronic medical condition aeb hyperglycemia mod hypoalb Comments 1) Refer to CDE on DC 2) Continue to closely monitor pt PO intake to meet at least 75% of meals 3) Continue current plan of care
[2019-09-09 17:10] VITALS: BP 96/55
[2019-09-09] MEDS: FUROSEMIDE 40 MG/4 ML VIAL IV SCH (18:00)
--- NOTE | 2019-09-09 18:30 | NUR ---
PT ON NON-REBREATHER AT 12LPM; O2SAT: 91% PT DENIES DISCOMFORT, CALL LIGHT WITHIN REACH.
--- NOTE | 2019-09-09 19:10 | NUR ---
Patient is AOx4 and resting in bed. She is currently on 12L non-rebreather and currently satting at 92%. Bed is locked in lowest position with side rails up x2. Will continue to monitor.
[2019-09-09 22:00] VITALS: BP_SYST 100; BP_SYST 106; BP_DIAS 58; BP_DIAS 71
[2019-09-09] MEDS: INSULIN LANTUS (GLARGINE) 1 /0.01ml (100units/ml) SC SCH (22:12)
[2019-09-10] MEDS: PIPERACILLIN-TAZOB 3.375GM 100 ML IV SCH ×4 (00:17→18:19)
[2019-09-10 05:26] VITALS: BP 114/69
[2019-09-10] MEDS: FUROSEMIDE 40 MG/4 ML VIAL IV SCH (06:21)
[2019-09-10] MEDS: LEVOTHYROXINE SODIUM 50 MCG TAB PO SCH (06:58)
[2019-09-10] MEDS: InsuLIN REG 1unit/0.01ml Soln (100units/ml) SC SCH ×4 (06:58→22:00)
[2019-09-10] MEDS: ACCU-CHEK COMFORT CURVE STRIP VI SCH ×4 (06:59→22:02)
[2019-09-10 09:00] VITALS: BP 110/65
[2019-09-10] MEDS: ASCORBIC ACID 1,000 MG TAB PO SCH (09:46)
[2019-09-10] MEDS: Glucerna Carbsteady SHAKE Chocolate 8oz PO SCH ×2 (09:47→18:19)
[2019-09-10] MEDS: POTASSIUM EFFERVESENT TAB 25 MEQ PO SCH (09:47)
[2019-09-10] MEDS: VANCOMYCIN 1GM/250ML 250 ML IV SCH (09:47)
[2019-09-10] MEDS: PANTOPRAZOLE 40 MG TAB PO SCH (09:47)
[2019-09-10] MEDS: ZINC SULFATE 220mg CAP or TAB PO SCH (09:47)
[2019-09-10] MEDS: ALBUTEROL SULF HFA 90MCG INH 200DOSE IN SCH ×2 (10:00→15:16)
[2019-09-10] MEDS: CHOLECALCIFEROL (VITD3) 1,000UNIT=25mCg TAB PO SCH (10:44)
[2019-09-10] MEDS: ENOXAPARIN SOD 80 MG/0.8ML SYRINGE SC SCH ×2 (10:44→22:39)
[2019-09-10 13:00] VITALS: BP 108/62
[2019-09-10 15:45] VITALS: BP 108/62
[2019-09-10 16:44] VITALS: BP 101/63
--- NOTE | 2019-09-10 18:30 | NUR ---
PT ON 10LPM NON-REBREATHER AT 95% TOLERATING THERAPY WELL. PT DENIES ANY DISCOMFORT, NO S/S OF DISTRESS. BED LOCKED AND IN LOWEST POSITION, CALL LIGHT WITHIN REACH.
[2019-09-10 22:00] VITALS: BP 100/58
[2019-09-10] MEDS: INSULIN LANTUS (GLARGINE) 1 /0.01ml (100units/ml) SC SCH (22:01)
[2019-09-11] MEDS: ALBUTEROL SULF HFA 90MCG INH 200DOSE IN SCH ×4 (00:13→22:37)
[2019-09-11] MEDS: PIPERACILLIN-TAZOB 3.375GM 100 ML IV SCH ×4 (00:33→17:46)
--- NOTE | 2019-09-11 01:00 | NUR ---
Titrated patient down to 8 liters via face mask. After a couple of minutes patient oxygen saturation was at 87%. I increased oxygen up to 9 liters and after 5 minutes still no increase. I placed patient back on 10L via non rebreather and oxygen saturation jaclyn back to 93%+. Will continue to monitor. Patient denied any additional feelings of shortness of breath during attempted downward titration of oxygen.
[2019-09-11 05:00] VITALS: BP 95/58
[2019-09-11] MEDS: LEVOTHYROXINE SODIUM 50 MCG TAB PO SCH (06:31)
[2019-09-11] MEDS: ACCU-CHEK COMFORT CURVE STRIP VI SCH ×4 (06:32→21:30)
[2019-09-11] MEDS: InsuLIN REG 1unit/0.01ml Soln (100units/ml) SC SCH ×4 (06:32→21:27)
[2019-09-11 07:28] LABS: Calcium 8.8 mg/dL (8.5-10.1); Potassium 3.6 mmol/L (3.5-5.1)
[2019-09-11 07:32] LABS: BUN/Creatinine Ratio 20.6
[2019-09-11 08:00] VITALS: BP 114/69
[2019-09-11] MEDS: Glucerna Carbsteady SHAKE Chocolate 8oz PO SCH ×2 (08:00→18:00)
--- NOTE | 2019-09-11 08:00 | NUR ---
ASSESSMENT NOTE PT IS ALERT ORIENTED X4, RESTING IN BED IN LOW CAM POSITION, ABLE TO SELF REPOSITION, AND VERBALIS HER DEMANDS, LARGE SOFT ABDOMEN NOTED, OXYGEN 10L MASK, NOTED, ASSISTED PT WITH HER NEEDS AT ALL TIMES, CALL LIGHT WITHIN REACH
[2019-09-11 08:07] VITALS: BP 107/67
--- NOTE | 2019-09-11 09:25 | NUR ---
TRANSFER PT VIA A WHEELCHAIR TO ICU TO VISIT HER DYING , AFTER ISOLATION GOWN APPLIED ON PT, N95 MASK, OXYGEN 10 MASK, ABLE TO GET OUT OF BED AND SIT ON THE CHAIR, NO DISTRESS NOTED, ACCOMPANIED WITH NUHA NURSE AID, TOLERATED WELL
[2019-09-11] MEDS ORDERED: ENOXAPARIN SOD 80 MG/0.8ML SYRINGE SC SCH (10:00)
[2019-09-11] MEDS: VANCOMYCIN 1GM/250ML 250 ML IV SCH (10:00)
--- NOTE | 2019-09-11 10:34 | NUR ---
PT IS BACK TO HER ROOM VIA WHEELCHAIR, OXYGEN 10, WAS ABLE TO GET OUT OF THE CHAIR AND GET IN HER BED AFTER TAKING OFF THE ISOLATION GOWN, A COMPLETE LINEN CHANGE DONE BEFORE PT ARRIVAL, NO DISTRESS NOTED, CONTINUE CARE
[2019-09-11] MEDS: ASCORBIC ACID 1,000 MG TAB PO SCH (10:55)
[2019-09-11] MEDS: CHOLECALCIFEROL (VITD3) 1,000UNIT=25mCg TAB PO SCH (10:55)
[2019-09-11] MEDS: PANTOPRAZOLE 40 MG TAB PO SCH (10:55)
[2019-09-11] MEDS: ENOXAPARIN SOD 80 MG/0.8ML SYRINGE SC SCH ×2 (10:55→21:28)
[2019-09-11] MEDS: ZINC SULFATE 220mg CAP or TAB PO SCH (10:55)
[2019-09-11] MEDS ORDERED: LEVOTHYROXINE SODIUM 88 MCG TAB PO ONE (11:30)
[2019-09-11 12:23] VITALS: BP 112/66
[2019-09-11 16:19] VITALS: BP 104/59
--- NOTE | 2019-09-11 16:49 | NUR ---
PT IS SLEEPING AT THIS TIME, NO DISTRESS NOTED, CONTINUE MONITORING
--- NOTE | 2019-09-11 18:00 | NUR ---
PT IS EATING DINNER, CONTINUE MONITORING
--- NOTE | 2019-09-11 18:53 | NUR ---
PT CONTINUE STABLE, NO DISTRESS NOTED, CONTINUE MONITORING
--- NOTE | 2019-09-11 20:10 | NUR ---
Opening Shift Note Assumed care of patient, awake and alert, oriented x 4, follows direction. On tele monitor 4 with continuos pulse ox on. patient currently on simple face mask with o2 sat 92%. No S/S of distress or SOB. Patient is able to turn in bed independently, no redness noted to sacrum. Bed in low locked position with side rails up x 2 and call light within reach. Instructed on POC and to call for assist PRN, will continue to monitor for changes Q1hr and PRN.
[2019-09-11] MEDS: INSULIN LANTUS (GLARGINE) 1 /0.01ml (100units/ml) SC SCH (21:30)
[2019-09-11 22:00] VITALS: BP 89/50
[2019-09-12] VITALS (7 sets, daily range): BP systolic 89–114; BP diastolic 44–69
[2019-09-12] MEDS: PIPERACILLIN-TAZOB 3.375GM 100 ML IV SCH ×5 (00:06→23:40)
[2019-09-12] MEDS: InsuLIN REG 1unit/0.01ml Soln (100units/ml) SC SCH ×4 (06:27→22:16)
[2019-09-12] MEDS: ACCU-CHEK COMFORT CURVE STRIP VI SCH ×4 (06:27→22:11)
[2019-09-12 06:38] LABS: Hematocrit 40.5 % (36.0-46.0); Hemoglobin 13.8 g/dL (12.2-16.2); Mean Corpuscular Hgb Conc. 34.2 g/dL (32.0-36.0); Mean Corpuscular Volume 87.8 fL (80.0-100.0); Platelet Count (auto) 237 10^3/uL (140-450); Red Blood Cells 4.61 10^6/uL (4.0-5.20); White Blood Cell 9.2 10^3/uL (4.4-10.8)
[2019-09-12 06:40] LABS: Basophils % (manual) 0 (0.0-2.0); Blast Cells 0; Eosinophils % (manual) 0 (0-7); Myelocytes % 0; Promyelocytes % 0; Reactive Lymphocytes 0
--- NOTE | 2019-09-12 06:47 | NUR ---
Closing note patient status unchanged. patient awake resting in bed with even and unlabored respirations, simple mask on at 10L oxygen, no s/s of distress or SOB, patient on tele monitor with continuous pulse ox on, o2 sat 90%. Bed in lowest locked position with side rails up x 2 and call light within reach.
[2019-09-12 07:01] LABS: BUN/Creatinine Ratio 18.9; Calcium 8.6 mg/dL (8.5-10.1); Potassium 3.1 mmol/L (3.5-5.1)
[2019-09-12] MEDS: Glucerna Carbsteady SHAKE Chocolate 8oz PO SCH ×2 (08:00→18:00)
--- NOTE | 2019-09-12 08:00 | NUR ---
ASSESSMENT NOTE PT IS ALERT ORIENTED X4, RESTING IN BED IN LOW CAM POSITION, ABLE TO SELF REPOSITION, AND VERBALIS HER DEMANDS, LARGE SOFT ABDOMEN NOTED, OXYGEN 15 L NON BREATHER MASK, NOTED, ASSISTED PT WITH HER NEEDS AT ALL TIMES, CALL LIGHT WITHIN REACH
[2019-09-12] MEDS: ALBUTEROL SULF HFA 90MCG INH 200DOSE IN SCH ×3 (08:28→23:41)
--- NOTE | 2019-09-12 08:28 | NUR ---
PT. FOUND ON 12LPM SIMPLE MASK , SATURATION 86%. PLACED ON 15LPM NRB MASK, SP02 INCREASED TO 92%. Addendum: 09/12/19 at 0838 by Kaley Brown RT Amended: Links added.
[2019-09-12 08:31] LABS: Band Neutrophils % (manual) 1; Lymphocytes % (manual) 10 (10.0-50.0); Metamyelocytes % 1; Monocytes % (manual) 7 (0-12)
[2019-09-12] MEDS: VANCOMYCIN 1GM/250ML 250 ML IV SCH (09:49)
[2019-09-12] MEDS: PANTOPRAZOLE 40 MG TAB PO SCH (09:50)
[2019-09-12] MEDS: ZINC SULFATE 220mg CAP or TAB PO SCH (09:50)
[2019-09-12] MEDS: ASCORBIC ACID 1,000 MG TAB PO SCH (09:51)
[2019-09-12] MEDS: ENOXAPARIN SOD 80 MG/0.8ML SYRINGE SC SCH ×2 (09:51→22:15)
[2019-09-12] MEDS: CHOLECALCIFEROL (VITD3) 1,000UNIT=25mCg TAB PO SCH (09:51)
[2019-09-12] MEDS: BUDESONIDE (INHALATION) 180 MCG IH IN SCH ×2 (10:00→23:41)
[2019-09-12] MEDS: POTASSIUM CHL 20 Meq TABLET PO SCH (10:03)
[2019-09-12] MEDS: FUROSEMIDE 40 MG/4 ML VIAL IV SCH (10:04)
[2019-09-12] MEDS: LEVOTHYROXINE SODIUM 88 MCG TAB PO SCH (10:05)
--- NOTE | 2019-09-12 11:43 | NUR ---
Nutrition Followup Notes Wt: 70.1 kg Unable to speak to pt d/t pt is positive for COVID. Pt is with a CCHO 60g diet, with Glucerna 1 carton BID with inadequate PO of 50% x 3 days per RN doc. Continue with Glucerna 1 carton BID d/t to poor po intake. Will continue to monitor PO status, skin status, pertinent labs and weight trends. Will f/u in 3-5 days. Est energy needs BW 72 [id number] kcal (23-25kcal/kg), Est protein needs: 72-79g (1.0-1.1g/kg BW). Will reassess prn LABS: CO2 33H, GLUC 113H, Alb 2.6L GI: Pt had 1 BM on 09/05 per RN doc BS: 18 mod risk. Refer to wound assessment report for full details. PES: Altered nutrition related lab values r.t current chronic medical condition aeb hyperglycemia mod hypoalb Comments 1) Refer to CDE on DC 2) Continue to closely monitor pt PO intake to meet at least 75% of meals 3) Continue current plan of care
--- NOTE | 2019-09-12 15:50 | NUR ---
PHYSICAL THERAPY AT BED SIDE
--- NOTE | 2019-09-12 16:21 | NUR ---
PATIENT'S DAUGHTER POLI CALLED REGARDING POWER OF COLOR ROOM ATTENDANT INFORMATION FOR HER MOM, BROADCAST SYSTEMS ENGINEER PHONE NUMBER GIVEN TO HER
--- NOTE | 2019-09-12 17:30 | NUR ---
PAGE DR CORTEZ PATIENT'S BLOOD PRESSURE IS 86/44 101, PT APPEAR ASYMPTOMATIC, SAT 94 % AT 15 L NRB
--- NOTE | 2019-09-12 18:03 | NUR ---
DR ARTHUR CALLED BACK, MADE AWARE OF PT STATUS, OXYGENATION, HISTORY, CHEST X RAY, WITH NEW ORDER OF NS 500 BOLUS
[2019-09-12] MEDS ORDERED: SODIUM CHLORIDE 0.9% 500 ML IV ONE (18:15)
--- NOTE | 2019-09-12 18:50 | NUR ---
PT CONTINUE STABLE, CONTINUE MONITORING
--- NOTE | 2019-09-12 20:15 | NUR ---
Opening Shift Note Assumed care of patient, awake and alert, oriented x 4, bolivian speaking, commutator tester at bedside, follows direction, clear speech. Patient currently on 15L non-rebreather, even and unlabored respirations, no s/s of respiratory distress , patient denies SOB, continuous pulse ox on, oxygen saturation 94-95%. Patient was able to return demonstration using the incentive spirometer, 500mL inspire volume, encouraged to continue to use incentive spirometer 10 times every hour with periods of breaks, patient verbalized understanding. Repositioned patient, tolerated well. Bed in lowest locked position with side rails up x 2 and call light within reach, bed alarm on. Instructed on POC and to call for assist PRN, will continue to monitor for changes Q1hr and PRN.
--- NOTE | 2019-09-12 22:05 | NUR ---
Rounds/IS patient awake sitting up in bed using incentive spirometer, 500mL inspire volume, tolerates well. Oxygen on at 15L, patient placed non-rebreather back, continuous pulse ox on with oxygen saturation 98%. will continue to monitor.
[2019-09-12] MEDS: INSULIN LANTUS (GLARGINE) 1 /0.01ml (100units/ml) SC SCH (22:15)
--- NOTE | 2019-09-13 00:05 | NUR ---
Rounds patient on tele monitor with continuous pulse ox on +, o2 saturation 83%. entered room patient was sleeping, noted mask to be loose below nose, no respiratory distress noted, adjust non-rebreather mask, oxygen saturation came up to 96%. patient was repositioned, tolerated well. will continue to monitor.
[2019-09-13] MEDS ORDERED: VANCOMYCIN 1GM/250ML 250 ML IV SCH (02:00)
--- NOTE | 2019-09-13 03:15 | NUR ---
Hygiene Care Performed Pyrites full bed bath with full linen change, patient tolerated well, no SOB or respiratory distress during this time, on 15L non-rebreather with oxygen saturation 98%, will continue to monitor.
[2019-09-13 05:04] VITALS: BP 100/55
[2019-09-13] MEDS: PIPERACILLIN-TAZOB 3.375GM 100 ML IV SCH (05:39)
[2019-09-13] MEDS: LEVOTHYROXINE SODIUM 88 MCG TAB PO SCH (06:18)
[2019-09-13] MEDS: InsuLIN REG 1unit/0.01ml Soln (100units/ml) SC SCH ×4 (06:18→21:47)
[2019-09-13] MEDS: ACCU-CHEK COMFORT CURVE STRIP VI SCH ×4 (06:19→21:47)
--- NOTE | 2019-09-13 06:30 | NUR ---
Oxygen/Titrated to 10L Oxymizer patient currently on 15L non-rebreather, maintained saturations 96-98% throughout shift, titrated patient to 10L Oxymizer, oxygen saturation 95%, no s/s of respiratory distress or SOB, will continue to monitor.
--- NOTE | 2019-09-13 07:01 | NUR ---
Closing note patient resting in bed with even and unlabored respirations, on oxygen at 10L via Oxymizer, no s/s of distress or SOB, patient on air hole driller with continuous pulse ox on, oxygen saturation 95%. Bed in lowest locked position with side rails up x 2 and call light within reach. endorsed care to day shift RN.
[2019-09-13 08:00] VITALS: BP 102/61
[2019-09-13] MEDS: Glucerna Carbsteady SHAKE Chocolate 8oz PO SCH ×2 (08:00→18:00)
--- NOTE | 2019-09-13 08:00 | NUR ---
ASSESSMENT NOTE PT IS ALERT ORIENTED X4, RESTING IN BED IN LOW CAM POSITION, ABLE TO SELF REPOSITION, AND VERBALIS HER DEMANDS, LARGE SOFT ABDOMEN NOTED, OXYGEN 10 L OXYMIZER , NOTED, ASSISTED PT WITH HER NEEDS AT ALL TIMES, CALL LIGHT WITHIN REACH
[2019-09-13] MEDS: ALBUTEROL SULF HFA 90MCG INH 200DOSE IN SCH ×3 (08:08→22:30)
[2019-09-13] MEDS: BUDESONIDE (INHALATION) 180 MCG IH IN SCH ×2 (08:09→22:30)
--- NOTE | 2019-09-13 08:30 | NUR ---
DR DAMICO CALLED TO FOLLOW UP ON PT, SAID THAT SHE WILL CALL PT FAMILY WITH THE UPDATE
[2019-09-13 08:50] VITALS: BP 96/51
--- NOTE | 2019-09-13 09:00 | NUR ---
PT IS ABLE TO SELF REPOSITION AT ALL TIMES, USE THE CALL LIGHT IF SHE NEED BED MORSE
[2019-09-13] MEDS: ZINC SULFATE 220mg CAP or TAB PO SCH (09:49)
[2019-09-13] MEDS: POTASSIUM CHL 20 Meq TABLET PO SCH (09:49)
[2019-09-13] MEDS: ASCORBIC ACID 1,000 MG TAB PO SCH (09:50)
[2019-09-13] MEDS: PANTOPRAZOLE 40 MG TAB PO SCH (09:50)
[2019-09-13] MEDS: levoFLOXacin 250 MG TAB PO SCH (09:50)
[2019-09-13] MEDS: CHOLECALCIFEROL (VITD3) 1,000UNIT=25mCg TAB PO SCH (09:50)
[2019-09-13] MEDS: ENOXAPARIN SOD 80 MG/0.8ML SYRINGE SC SCH ×2 (09:51→21:47)
[2019-09-13] MEDS: FUROSEMIDE 40 MG/4 ML VIAL IV SCH (10:00)
--- NOTE | 2019-09-13 10:00 | NUR ---
DR DAMICO MADE AWARE THAT LASIX IV IS NOT GIVEN BECAUSE THE BP IS LOW
--- NOTE | 2019-09-13 10:00 | NUR ---
ENCOURAGE PT TO USE INCENTIVE SPIROMETER 10X / HR IN ORDER TO IMPROVE
--- NOTE | 2019-09-13 12:20 | NUR ---
DR DAMICO AT BED SIDE FOLLOWING UP ON PT, DECREASE THE OXYGEN LEVEL TO 8 L, PT IS SAT ON 94%
[2019-09-13 13:00] VITALS: BP 95/52
--- NOTE | 2019-09-13 14:11 | NUR ---
PHYSICAL THERAPY AT BED SIDE AMBULATED PT FOR A FEW STEPS, PT DESATURATE TO 80 %, OXYGEN INCREASE TO 10 L
[2019-09-13 17:00] VITALS: BP 91/53
--- NOTE | 2019-09-13 18:53 | NUR ---
PT CONTINUE STABLE, CONTINUE MONITORING
--- NOTE | 2019-09-13 19:15 | NUR ---
Opening Shift Note Assumed care of patient, awake, alert and oriented x4, on 8L of oxygen via oxymizer with even and unlabored respirations, no S/S of distress/SOB or pain. Patient able to turn in bed independently, bed in lowest locked position, side rails up x2, and call light within reach. Instructed on POC and to call for assist PRN, will continue to monitor for changes Q1hr and PRN.
[2019-09-13] MEDS: INSULIN LANTUS (GLARGINE) 1 /0.01ml (100units/ml) SC SCH (21:48)
[2019-09-13 22:41] VITALS: BP 100/55
[2019-09-14 05:00] VITALS: BP 97/57
[2019-09-14] MEDS: ACCU-CHEK COMFORT CURVE STRIP VI SCH ×4 (06:39→21:58)
[2019-09-14] MEDS: LEVOTHYROXINE SODIUM 88 MCG TAB PO SCH (06:39)
[2019-09-14] MEDS: InsuLIN REG 1unit/0.01ml Soln (100units/ml) SC SCH ×4 (06:40→21:58)
[2019-09-14] MEDS: ALBUTEROL SULF HFA 90MCG INH 200DOSE IN SCH ×3 (07:24→22:00)
[2019-09-14] MEDS: BUDESONIDE (INHALATION) 180 MCG IH IN SCH ×2 (07:24→22:00)
[2019-09-14 08:00] VITALS: BP 107/48
[2019-09-14] MEDS: Glucerna Carbsteady SHAKE Chocolate 8oz PO SCH ×2 (08:00→18:00)
[2019-09-14 09:00] VITALS: BP 107/48
[2019-09-14] MEDS: ZINC SULFATE 220mg CAP or TAB PO SCH (09:46)
[2019-09-14] MEDS: FUROSEMIDE 40 MG/4 ML VIAL IV SCH (09:46)
[2019-09-14] MEDS: CHOLECALCIFEROL (VITD3) 1,000UNIT=25mCg TAB PO SCH (09:47)
[2019-09-14] MEDS: POTASSIUM CHL 20 Meq TABLET PO SCH (09:47)
[2019-09-14] MEDS: levoFLOXacin 250 MG TAB PO SCH (09:47)
[2019-09-14] MEDS: PANTOPRAZOLE 40 MG TAB PO SCH (09:47)
[2019-09-14] MEDS: ASCORBIC ACID 1,000 MG TAB PO SCH (09:47)
[2019-09-14] MEDS: ENOXAPARIN SOD 80 MG/0.8ML SYRINGE SC SCH ×2 (09:48→21:57)
[2019-09-14 12:27] LABS: Basophils # (auto) 0 10 ^3/uL (0-0.2); Basophils % (auto) 0.1 % (0.0-2.0); Eosinophils # (auto) 0.1 10 ^3/uL (0-0.8); Eosinophils % (auto) 1.5 % (0.0-7.0); Hematocrit 36.2 % (36.0-46.0); Hemoglobin 12.3 g/dL (12.2-16.2); Lymphocytes # (auto) 0.7 10 ^3/uL (0.4-5.4); Lymphocytes % (auto) 6.8 % (10.0-50.0); Mean Corpuscular Hemoglobin 29.5 pg (28.0-32.0); Mean Corpuscular Hgb Conc. 33.9 g/dL (32.0-36.0); Monocytes # (auto) 0.3 10 ^3/uL (0-1.3); Monocytes % (auto) 2.8 % (0.0-12.0); Neutrophils # (auto) 8.6 10 ^3/uL (1.6-8.6); Neutrophils % (auto) 88.8 % (37.0-80.0); Platelet Count (auto) 252 10^3/uL (140-450); Red Blood Cells 4.16 10^6/uL (4.0-5.20); Red Cell Distribution Width 14.1 % (11.8-14.3); White Blood Cell 9.7 10^3/uL (4.4-10.8)
[2019-09-14 12:42] LABS: Potassium 4.1 mmol/L (3.5-5.1)
[2019-09-14 12:49] LABS: Albumin 2.5 g/dL (3.4-5.0); BUN/Creatinine Ratio 22.9; Bilirubin, Total 0.4 mg/dL (0.2-1.0); Total Protein 5.9 g/dL (6.4-8.2)
[2019-09-14 13:00] VITALS: BP 106/65
[2019-09-14 17:38] VITALS: BP 98/74
--- NOTE | 2019-09-14 19:14 | NUR ---
Opening Shift Note Assumed care of patient, awake, alert and oriented x4, on 12L of oxygen via oxymizer with even and unlabored respirations, no S/S of distress/SOB or pain. Patient able to turn in bed independently, bed in lowest locked position, side rails up x2, and call light within reach. Instructed on POC and to call for assist PRN, will continue to monitor for changes Q1hr and PRN.
[2019-09-14 22:00] VITALS: BP 100/62
[2019-09-14] MEDS: INSULIN LANTUS (GLARGINE) 1 /0.01ml (100units/ml) SC SCH (22:00)
[2019-09-15 05:00] VITALS: BP 106/65
[2019-09-15] MEDS: InsuLIN REG 1unit/0.01ml Soln (100units/ml) SC SCH ×4 (06:57→21:31)
[2019-09-15] MEDS: LEVOTHYROXINE SODIUM 88 MCG TAB PO SCH (06:57)
[2019-09-15] MEDS: ACCU-CHEK COMFORT CURVE STRIP VI SCH ×4 (06:57→21:27)
[2019-09-15] MEDS: BUDESONIDE (INHALATION) 180 MCG IH IN SCH ×2 (07:08→21:35)
[2019-09-15] MEDS: ALBUTEROL SULF HFA 90MCG INH 200DOSE IN SCH ×3 (07:08→21:35)
[2019-09-15] MEDS: Glucerna Carbsteady SHAKE Chocolate 8oz PO SCH ×2 (08:00→17:43)
[2019-09-15 08:54] VITALS: BP 109/58
[2019-09-15] MEDS: FUROSEMIDE 40 MG/4 ML VIAL IV SCH (09:44)
[2019-09-15] MEDS: POTASSIUM CHL 20 Meq TABLET PO SCH (09:44)
[2019-09-15] MEDS: levoFLOXacin 250 MG TAB PO SCH (09:44)
[2019-09-15] MEDS: PANTOPRAZOLE 40 MG TAB PO SCH (09:44)
[2019-09-15] MEDS: ZINC SULFATE 220mg CAP or TAB PO SCH (09:44)
[2019-09-15] MEDS: ENOXAPARIN SOD 80 MG/0.8ML SYRINGE SC SCH ×2 (09:45→21:27)
[2019-09-15] MEDS: ASCORBIC ACID 1,000 MG TAB PO SCH (09:45)
[2019-09-15] MEDS: CHOLECALCIFEROL (VITD3) 1,000UNIT=25mCg TAB PO SCH (09:45)
[2019-09-15 13:07] VITALS: BP 112/69
[2019-09-15 17:26] VITALS: BP 107/63
--- NOTE | 2019-09-15 19:20 | NUR ---
Openning note Assumed care of patient. Patient is alert and orientated x4. No sob or distress noted. She is on 10 L oxymizer saturating at 92%. POC reviewed, all questions answered. Bed locked in lowest position, side rails up x2. Call light within reach. Will continue to monitor.
[2019-09-15] MEDS: INSULIN LANTUS (GLARGINE) 1 /0.01ml (100units/ml) SC SCH (21:36)
[2019-09-15 22:00] VITALS: BP 111/62
[2019-09-16 02:22] VITALS: BP 111/62
[2019-09-16] MEDS: LEVOTHYROXINE SODIUM 88 MCG TAB PO SCH (06:34)
[2019-09-16] MEDS: InsuLIN REG 1unit/0.01ml Soln (100units/ml) SC SCH ×4 (06:34→21:41)
[2019-09-16] MEDS: ACCU-CHEK COMFORT CURVE STRIP VI SCH ×4 (06:35→21:37)
--- NOTE | 2019-09-16 07:13 | NUR ---
closing note endorsed care to day shift RN no distress or sob noted
[2019-09-16 07:14] LABS: Potassium 4.2 mmol/L (3.5-5.1)
[2019-09-16 07:20] LABS: Albumin 2.7 g/dL (3.4-5.0); BUN/Creatinine Ratio 15.8; Bilirubin, Total 0.5 mg/dL (0.2-1.0); Calcium 9.2 mg/dL (8.5-10.1); Total Protein 6.4 g/dL (6.4-8.2)
[2019-09-16] MEDS: ALBUTEROL SULF HFA 90MCG INH 200DOSE IN SCH ×3 (07:42→21:41)
[2019-09-16] MEDS: BUDESONIDE (INHALATION) 180 MCG IH IN SCH ×2 (07:43→21:42)
[2019-09-16] MEDS: Glucerna Carbsteady SHAKE Chocolate 8oz PO SCH ×2 (08:24→18:10)
[2019-09-16 09:00] VITALS: BP 114/67
[2019-09-16] MEDS: FUROSEMIDE 40 MG/4 ML VIAL IV SCH (10:09)
[2019-09-16] MEDS: PANTOPRAZOLE 40 MG TAB PO SCH (10:10)
[2019-09-16] MEDS: levoFLOXacin 250 MG TAB PO SCH (10:10)
[2019-09-16] MEDS: POTASSIUM CHL 20 Meq TABLET PO SCH (10:10)
[2019-09-16] MEDS: ASCORBIC ACID 1,000 MG TAB PO SCH (10:10)
[2019-09-16] MEDS: ZINC SULFATE 220mg CAP or TAB PO SCH (10:10)
[2019-09-16] MEDS: CHOLECALCIFEROL (VITD3) 1,000UNIT=25mCg TAB PO SCH (10:10)
[2019-09-16] MEDS: ENOXAPARIN SOD 80 MG/0.8ML SYRINGE SC SCH ×2 (10:11→21:37)
[2019-09-16 12:00] VITALS: BP 123/77
--- NOTE | 2019-09-16 12:45 | NUR ---
Pt requested PT tx "later". Addendum: 09/16/19 at 1613 by Ming Lopez LOG SKIDDER Amended: Links added.
[2019-09-16] MEDS ORDERED: DexAMETHasone 4 MG TAB PO ONE (14:30)
--- NOTE | 2019-09-16 15:57 | NUR ---
Nutrition Followup Notes Wt: 70.7 kg Unable to speak to pt d/t pt is positive for COVID. Pt is with a CCHO 60g diet, with Glucerna 1 carton BID with good PO intake of ave of 94% x 4 meals per RN doc. Continue with Glucerna 1 carton BID d/t to poor po intake. Will continue to monitor PO status, skin status, pertinent labs and weight trends. Will f/u in 3-5 days. Est energy needs BW 72 [id number] kcal (23-25kcal/kg), Est protein needs: 72-79g (1.0-1.1g/kg BW). Will reassess prn LABS: Alb 2.7L GI: Pt had 1 BM on 09/11 per RN doc BS: 19 low risk. Refer to wound assessment report for full details. PES: Altered nutrition related lab values r.t current chronic medical condition aeb hyperglycemia mod hypoalb Comments 1) Refer to CDE on DC 2) Continue to closely monitor pt PO intake to meet at least 75% of meals 3) Continue current plan of care
[2019-09-16 17:00] VITALS: BP 110/71
--- NOTE | 2019-09-16 21:40 | NUR ---
RT NOTE PT WAS SEEN BY RT FOR MDI TX. PT TOLERATES WELL VIA SPACER. PT RINSED MOUTH WITH WATER POST MDI TX. HR 111, RR18, BS CLEAR/DIMINISHED, POX 94% ON 10L OXYMIZER. CONT ORDERED Addendum: 09/16/19 at 2257 by Darya Jackson RT Amended: Links added.
[2019-09-16] MEDS: INSULIN LANTUS (GLARGINE) 1 /0.01ml (100units/ml) SC SCH (21:41)
[2019-09-16 22:00] VITALS: BP 104/74
[2019-09-17 05:00] VITALS: BP 107/73
[2019-09-17] MEDS: ALBUTEROL SULF HFA 90MCG INH 200DOSE IN SCH ×3 (06:59→21:44)
[2019-09-17] MEDS: InsuLIN REG 1unit/0.01ml Soln (100units/ml) SC SCH ×4 (07:00→21:53)
[2019-09-17] MEDS: BUDESONIDE (INHALATION) 180 MCG IH IN SCH ×2 (07:05→21:44)
[2019-09-17] MEDS: LEVOTHYROXINE SODIUM 88 MCG TAB PO SCH (07:30)
[2019-09-17] MEDS: ACCU-CHEK COMFORT CURVE STRIP VI SCH ×4 (07:31→21:51)
[2019-09-17 09:00] VITALS: BP 118/68
[2019-09-17] MEDS: FUROSEMIDE 40 MG/4 ML VIAL IV SCH (10:48)
[2019-09-17] MEDS: ZINC SULFATE 220mg CAP or TAB PO SCH (10:48)
[2019-09-17] MEDS: Glucerna Carbsteady SHAKE Chocolate 8oz PO SCH ×2 (10:48→18:00)
[2019-09-17] MEDS: ASCORBIC ACID 1,000 MG TAB PO SCH (10:49)
[2019-09-17] MEDS: ENOXAPARIN SOD 80 MG/0.8ML SYRINGE SC SCH ×2 (10:49→21:51)
[2019-09-17] MEDS: DexAMETHasone 4 MG TAB PO SCH (10:49)
[2019-09-17] MEDS: POTASSIUM CHL 20 Meq TABLET PO SCH (10:49)
[2019-09-17] MEDS: levoFLOXacin 250 MG TAB PO SCH (10:49)
[2019-09-17] MEDS: CHOLECALCIFEROL (VITD3) 1,000UNIT=25mCg TAB PO SCH (10:49)
[2019-09-17] MEDS: PANTOPRAZOLE 40 MG TAB PO SCH (10:49)
[2019-09-17 13:00] VITALS: BP 118/68
[2019-09-17 17:00] VITALS: BP 107/66
--- NOTE | 2019-09-17 19:16 | NUR ---
Opening Shift Note Assumed care of patient, awake, alert and oriented x4, on 9L of oxygen via oxymizer with even and unlabored respirations, no S/S of distress/SOB or pain. Patient able to turn in bed independently, bed in lowest locked position, side rails up x2, and call light within reach. Instructed on POC and to call for assist PRN, will continue to monitor for changes Q1hr and PRN.
[2019-09-17] MEDS: INSULIN LANTUS (GLARGINE) 1 /0.01ml (100units/ml) SC SCH (21:52)
[2019-09-17 22:00] VITALS: BP 105/68
[2019-09-18 05:27] VITALS: BP 117/72
[2019-09-18] MEDS: ACCU-CHEK COMFORT CURVE STRIP VI SCH ×4 (06:37→21:54)
[2019-09-18] MEDS: InsuLIN REG 1unit/0.01ml Soln (100units/ml) SC SCH ×4 (06:37→21:52)
[2019-09-18] MEDS: LEVOTHYROXINE SODIUM 100 MCG TAB PO SCH (06:39)
[2019-09-18] MEDS: BUDESONIDE (INHALATION) 180 MCG IH IN SCH ×2 (07:13→22:32)
[2019-09-18] MEDS: ALBUTEROL SULF HFA 90MCG INH 200DOSE IN SCH ×2 (07:13→15:17)
--- NOTE | 2019-09-18 07:30 | NUR ---
Opening Shift Note Assumed care of patient, awake and alert. No S/S of distress/SOB or pain. Instructed on POC and to call for assist PRN, will continue to monitor for changes Q1hr and PRN. Fall precautions in place per safety protocol.
[2019-09-18] MEDS: Glucerna Carbsteady SHAKE Chocolate 8oz PO SCH ×2 (08:00→18:00)
[2019-09-18 08:52] VITALS: BP 104/65
[2019-09-18] MEDS: FUROSEMIDE 40 MG/4 ML VIAL IV SCH (10:42)
[2019-09-18] MEDS: ZINC SULFATE 220mg CAP or TAB PO SCH (10:42)
[2019-09-18] MEDS: DexAMETHasone 4 MG TAB PO SCH (10:42)
[2019-09-18] MEDS: POTASSIUM CHL 20 Meq TABLET PO SCH (10:43)
[2019-09-18] MEDS: PANTOPRAZOLE 40 MG TAB PO SCH (10:43)
[2019-09-18] MEDS: ENOXAPARIN SOD 80 MG/0.8ML SYRINGE SC SCH ×2 (10:44→21:53)
[2019-09-18] MEDS: CHOLECALCIFEROL (VITD3) 1,000UNIT=25mCg TAB PO SCH (10:44)
[2019-09-18] MEDS: ASCORBIC ACID 1,000 MG TAB PO SCH (10:44)
[2019-09-18 11:20] LABS: BUN/Creatinine Ratio 28.7; Potassium 3.8 mmol/L (3.5-5.1)
--- NOTE | 2019-09-18 11:28 | NUR ---
Remdesivir Consent Obtained consents from patient for remdesivir medications. Paced consent in chart, faxed a copy to pharmacy, and gave a copy to patient. Consents signed in slovak as patient is slovak speaking. Patient educated on risks and benefits of medications. MD Fried spoke to family. Will cont to monitor patient. Addendum: 09/18/19 at 1625 by DARELL GARCIA RN RN WRONG PATIENT.
[2019-09-18 12:48] VITALS: BP 118/82
[2019-09-18 17:00] VITALS: BP 94/67
--- NOTE | 2019-09-18 19:10 | NUR ---
Opening note Pt is A&Ox4. pt is Ukrainian speaking, but also knows some Ukrainian. Respirations nonlabored on 8L oxymizer. Pt positioned in semi fowlers with HOB at 30 degrees. pt denies pain or discomfort at this time. POC discussed. pt verbalized understanding. bed rails up x2. pt ambulates to bedside commode with assistance.
[2019-09-18 20:27] VITALS: BP 94/67
[2019-09-18] MEDS: INSULIN LANTUS (GLARGINE) 1 /0.01ml (100units/ml) SC SCH (21:53)
[2019-09-18 22:00] VITALS: BP 99/65
[2019-09-19 05:00] VITALS: BP 110/66
[2019-09-19] MEDS: LEVOTHYROXINE SODIUM 100 MCG TAB PO SCH (06:12)
[2019-09-19] MEDS: InsuLIN REG 1unit/0.01ml Soln (100units/ml) SC SCH ×4 (06:13→21:18)
[2019-09-19] MEDS: ACCU-CHEK COMFORT CURVE STRIP VI SCH ×4 (06:13→21:10)
[2019-09-19] MEDS: BUDESONIDE (INHALATION) 180 MCG IH IN SCH ×2 (06:52→22:00)
--- NOTE | 2019-09-19 07:07 | NUR ---
closing note pt resting in semi fowlers, alert and oriented x4. no c/o pain or discomfort. respirations nonlabored on 8L oxymizer. bed in low locked position, call light within reach.
[2019-09-19 08:00] VITALS: BP 93/67
[2019-09-19 09:00] VITALS: BP 93/63
[2019-09-19] MEDS: Glucerna Carbsteady SHAKE Chocolate 8oz PO SCH ×2 (09:28→18:00)
[2019-09-19] MEDS: PANTOPRAZOLE 40 MG TAB PO SCH (09:29)
[2019-09-19] MEDS: POTASSIUM CHL 20 Meq TABLET PO SCH (09:29)
[2019-09-19] MEDS: ENOXAPARIN SOD 80 MG/0.8ML SYRINGE SC SCH ×2 (09:30→21:10)
[2019-09-19] MEDS: FUROSEMIDE 40 MG TAB PO SCH (09:30)
--- NOTE | 2019-09-19 10:20 | NUR ---
Patient's oxygen titrated down to 7L Oxymizer, patient saturated at 96%. will continue to monitor. Addendum: 09/19/19 at 1149 by Karoline Giordano RN [id number]*Per MD orders. Addendum: 09/19/19 at 1150 by Karoline Giordano RN Dr. Benjamin titrated patients oxygen down to %L Oxymizer. Spo2 96%. Patient tolerating well. Will continue to monitor.
[2019-09-19 11:47] LABS: Hematocrit 37.5 % (36.0-46.0); Hemoglobin 12.8 g/dL (12.2-16.2); Mean Corpuscular Hemoglobin 29.9 pg (28.0-32.0); Mean Corpuscular Hgb Conc. 34.1 g/dL (32.0-36.0); Mean Corpuscular Volume 87.7 fL (80.0-100.0); Platelet Count (auto) 351 10^3/uL (140-450); Red Blood Cells 4.27 10^6/uL (4.0-5.20); Red Cell Distribution Width 15.1 % (11.8-14.3); White Blood Cell 10.7 10^3/uL (4.4-10.8)
[2019-09-19 11:50] LABS: Band Neutrophils % (manual) 0; Basophils % (manual) 0 (0.0-2.0); Blast Cells 0; Eosinophils % (manual) 0 (0-7); Metamyelocytes % 0; Myelocytes % 0; Promyelocytes % 0; Reactive Lymphocytes 0
[2019-09-19 12:35] LABS: Lymphocytes % (manual) 22 (10.0-50.0); Monocytes % (manual) 7 (0-12)
--- NOTE | 2019-09-19 14:20 | NUR ---
Nutrition Followup Notes Wt: 70.7 kg Unable to speak to pt d/t pt is positive for COVID. Pt is with a CCHO 60g diet, with Glucerna 1 carton BID with good PO intake of ave of >75% x 6 meals per RN doc. Will f/u in 3-5 days. Est energy needs BW 72 [id number] kcal (23-25kcal/kg), Est protein needs: 72-79g (1.0-1.1g/kg BW). Will reassess prn LABS: Alb 2.7L, GLU 223 H GI: Pt had 1 BM yesterday per RN doc BS: 20 low risk. Refer to wound assessment report for full details. PES: Altered nutrition related lab values r.t current chronic medical condition aeb hyperglycemia mod hypoalb Comments 1) Refer to CDE on DC 2) Continue to closely monitor pt PO intake to meet at least 75% of meals 3) Continue current plan of care
--- NOTE | 2019-09-19 15:40 | NUR ---
FAMILY UPDATE UPDATED FAMILY AFTER PASSWORD WAS PROVIDED.
[2019-09-19 17:00] VITALS: BP 104/67
--- NOTE | 2019-09-19 17:00 | NUR ---
Oxygen titrated to 4L via Oxymizer. Patient saturating at 95%. No s/s of distress/sob. No c/o pain. Bed at lowest locked position and call light within reach.
--- NOTE | 2019-09-19 19:15 | NUR ---
opening note pt positioned in semi fowlers with HOB at 30 degrees. pt is A&Ox4 and Italian speaking, however knows some Mongolian. pt denies pain or discomfort, will continue to monitor. pt is on 4L oxymizer. o2 saturation is 95%. side rails up x2. bed in low locked position, call light within reach.
--- NOTE | 2019-09-19 19:25 | NUR ---
Closing Note Patient resting in bed. No c/o pain. No s/s of distress/sob noted/stated. Bed at lowest locked position and call light within reach. Care endorsed to Lissy JAIN.
[2019-09-19] MEDS: INSULIN LANTUS (GLARGINE) 1 /0.01ml (100units/ml) SC SCH (21:12)
[2019-09-19 22:00] VITALS: BP 100/63
--- NOTE | 2019-09-20 03:00 | NUR ---
Oxygen titrated to 3L via Oxymizer. Patient oxygen saturation is 95%. No s/s of SOB or distress. No c/o pain or distress, will continue to monitor.
[2019-09-20 05:00] VITALS: BP 98/65
--- NOTE | 2019-09-20 05:10 | NUR ---
Oxygen titrated to 2L via Oxymizer. Patient oxygen saturation remains at 95% at this time. No s/s of SOB or distress. No c/o pain or distress. Pt is awake alert and oriented x4. Will continue to monitor.
[2019-09-20] MEDS: LEVOTHYROXINE SODIUM 100 MCG TAB PO SCH (06:08)
[2019-09-20] MEDS: ACCU-CHEK COMFORT CURVE STRIP VI SCH ×3 (06:08→17:02)
[2019-09-20] MEDS: InsuLIN REG 1unit/0.01ml Soln (100units/ml) SC SCH ×3 (06:14→17:05)
[2019-09-20] MEDS: BUDESONIDE (INHALATION) 180 MCG IH IN SCH (06:38)
[2019-09-20] MEDS: Glucerna Carbsteady SHAKE Chocolate 8oz PO SCH ×2 (08:00→18:00)
[2019-09-20 08:26] VITALS: BP 105/58
--- NOTE | 2019-09-20 08:48 | NUR ---
Oxygen titrated to 3L via NC as per MD Correia request. Patient oxygen saturation remains at 91% at this time. No s/s of SOB or distress. No c/o pain or distress. Pt is awake alert and oriented x4. Will continue to monitor.
[2019-09-20] MEDS: POTASSIUM CHL 20 Meq TABLET PO SCH (10:00)
[2019-09-20] MEDS: PANTOPRAZOLE 40 MG TAB PO SCH (10:00)
[2019-09-20] MEDS: FUROSEMIDE 40 MG TAB PO SCH (10:00)
[2019-09-20] MEDS: ENOXAPARIN SOD 80 MG/0.8ML SYRINGE SC SCH (10:00)
[2019-09-20] MEDS ORDERED: ASPI81CH43 PO (10:37)
[2019-09-20] MEDS ORDERED: ALBUAER3 IN (10:37)
[2019-09-20] MEDS ORDERED: CHOL20007 PO (10:37)
[2019-09-20] MEDS ORDERED: MULTTAB75 PO (10:37)
[2019-09-20] MEDS ORDERED: LEV100T PO (10:37)
[2019-09-20 13:00] VITALS: BP 114/64
--- NOTE | 2019-09-20 13:25 | NUR ---
1250 09/20/19 - Faxed [facility] at [phone] face sheet, order for home oxygen a 5L/min, H/P, discharge summary, progress notes, requesting authorization for DME, order also sent to [facility].
--- NOTE | 2019-09-20 14:55 | NUR ---
D/C Planning regarding social service consult for home oxygen. Faxed clinical information to [facility]. LEANDRO Escalona will obtain authorization from [employer]. Per Bridgette with [facility] they are currently working on order and will contact me with an ETA.
--- NOTE | 2019-09-20 15:13 | NUR ---
1500 09/20/19 - Received call from [facility] GP regarding request for DME for patient. Informed that the medical plan [employer] would provide the authorization. I redirected the request to [employer] at [phone]. Pending review and approved authorization.
--- NOTE | 2019-09-20 15:37 | NUR ---
1530 09/20/19 - Spoke with [facility] Buckle Stapler who confirmed receiving faxed request for DME and stated she would start processing the order. She stated [facility] was contracted with [employer] and [employer].
--- NOTE | 2019-09-20 15:42 | NUR ---
D/C Planning Received a follow up called from Florence with [facility] advising me they are contracted with patient medical group but not the health plan. Per Florence patient health plan is at risk. Informed LEANDRO Escalona. Order was redirected to [facility]. Faxed clinical information to [facility] or .
[2019-09-20 16:06] VITALS: BP 114/58
--- NOTE | 2019-09-20 16:12 | NUR ---
D/C Planning Placed follow up called to [facility], spoke to Jimmy. Per Jimmy with [facility] portable oxygen will be deliver to front lobby between 16:30-18:30. Informed SUSY Scott.
--- NOTE | 2019-09-20 16:15 | NUR ---
Per LIGIA VICTORIA portable oxygen will be deliver to front lobby between 16:30-18:30
[2019-09-20 16:53] VITALS: BP 110/61
--- NOTE | 2019-09-20 18:30 | NUR ---
portable oxygen delivered to bed side
--- NOTE | 2019-09-20 18:54 | NUR ---
Discharge instructions given as ordered. Encourage to follow up with PMD as instructed. All questions and concerns addressed. Patient verbalized understanding. Medication reconciliation form completed and copy given to patient. Home medications held in Pharmacy returned to patient. IV removed with catheter intact, pressure dressing applied. Telemetry unit returned to ICU. Patient taken to vehicle via wheelchair with all personal belongings, accompanied by staff . No distress noted at time of departure.
== END 2019-09-20 18:45 | disposition home or self-care (01) | DRG 871 ==
LOC: EDBD 09:32 → ER 09:32 → TELE 09:33 → TELE-EAST 16:22
PROVIDERS: ADMIT Internal Medicine; ATTEND Internal Medicine
PROC: 30233K1 Transfusion of Nonautologous Frozen Plasma into Peripheral Vein, Percutaneous Approach (ICD-10-PCS; principal; 2019-09-05)
DX: A41.89 Other specified sepsis (principal); U07.1 COVID-19; J12.89 Other viral pneumonia; E43 Unspecified severe protein-calorie malnutrition; J15.6 Pneumonia due to other Gram-negative bacteria; N17.0 Acute kidney failure with tubular necrosis; J96.01 Acute respiratory failure with hypoxia; G93.40 Encephalopathy, unspecified; E11.65 Type 2 diabetes mellitus with hyperglycemia; E03.9 Hypothyroidism, unspecified; I10 Essential (primary) hypertension; D64.9 Anemia, unspecified; E11.40 Type 2 diabetes mellitus with diabetic neuropathy, unspecified; E78.5 Hyperlipidemia, unspecified; F41.9 Anxiety disorder, unspecified; M19.90 Unspecified osteoarthritis, unspecified site; Z90.49 Acquired absence of other specified parts of digestive tract; Z79.899 Other long term (current) drug therapy; Z98.51 Tubal ligation status; Z68.25 Body mass index [BMI] 25.0-25.9, adult
CPT/HCPCS: 36415; 71045; 80048; 80053; 80202; 82728; 82962; 83036; 83605; 83735; 83880; 84100; 84439; 84443; 84481; 84484; 85007; 85025; 85027; 85379; 85652; 86141; 86850; 86900; 86901; 87040; 93005; 94640; 97110; 97163; 97530; G0378; J0696; J1100; J1815; J1956; J2543; J3480; J3490

== ENCOUNTER 2019-11-02 16:42 | Inpatient (IN) | payer MEDICARE ==
[~2019-11-02] VITALS: Ht 165.1 cm; Wt 72.6 kg
[~2019-11-02 16:42] MED LIST: ALBUAER3 IN; ASPI-543 PO; ASPI81CH43 PO; ATOR10TA52 PO; CHOL20007 PO; GABA100C9 PO; GLIP5TAB12 PO; LEV100T PO; MULTTAB75 PO; SENN-58 PO
[2019-11-02 17:13] LABS: Basophils # (auto) 0.1 10 ^3/uL (0-0.2); Basophils % (auto) 0.9 % (0.0-2.0); Eosinophils # (auto) 0.1 10 ^3/uL (0-0.8); Eosinophils % (auto) 1.3 % (0.0-7.0); Hematocrit 34.7 % (36.0-46.0); Hemoglobin 11.1 g/dL (12.2-16.2); Lymphocytes # (auto) 2.6 10 ^3/uL (0.4-5.4); Lymphocytes % (auto) 39.3 % (10.0-50.0); Mean Corpuscular Hemoglobin 28.9 pg (28.0-32.0); Mean Corpuscular Volume 90.2 fL (80.0-100.0); Monocytes # (auto) 0.4 10 ^3/uL (0-1.3); Monocytes % (auto) 6.4 % (0.0-12.0); Neutrophils # (auto) 3.5 10 ^3/uL (1.6-8.6); Neutrophils % (auto) 52.1 % (37.0-80.0); Platelet Count (auto) 307 10^3/uL (140-450); Red Blood Cells 3.85 10^6/uL (4.0-5.20); Red Cell Distribution Width 15.4 % (11.8-14.3); White Blood Cell 6.6 10^3/uL (4.4-10.8)
[2019-11-02 17:25] LABS: Albumin 3.4 g/dL (3.4-5.0); Anion Gap 9 (5-15); Blood Urea Nitrogen 6 mg/dL (7-18); Calcium 9.3 mg/dL (8.5-10.1); Carbon Dioxide 27 mmol/L (21-32); Chloride 107 mmol/L (98-107); Glucose 122 mg/dL (74-106); Magnesium 2.3 mg/dL (1.6-2.6); Potassium 3.4 mmol/L (3.5-5.1); Sodium 143 mmol/L (136-145)
[2019-11-02 17:31] LABS: Alanine Aminotransferase 545 U/L (13-56); Alkaline Phosphatase 508 U/L (45-117); Aspartate Aminotransferase 699 U/L (15-37); BUN/Creatinine Ratio 9.7; Bilirubin, Total 1.5 mg/dL (0.2-1.0); GFR African American 122 mL/min; GFR Non-African American 101 mL/min; Total Protein 7.1 g/dL (6.4-8.2)
[2019-11-02] MEDS ORDERED: SODIUM CHLORIDE 0.9% 1,000 ML IV ONE ×2 (18:15→20:45)
[2019-11-02] MEDS ORDERED: MORPHINE SULF INJ 2 MG/ML SYRINGE 1ML IV ONE (18:15)
[2019-11-02] MEDS ORDERED: ONDANSETRON HCL 4 MG/2 ML VIAL IV ONE (18:15)
[2019-11-02] MEDS ORDERED: SODIUM CHLORIDE 0.9% 1,000 ML IVB ONE (19:04)
[2019-11-02] MEDS ORDERED: AZITHROMYCIN 500MG/ 250ML 250 ML IV ONE (19:15)
[2019-11-02 19:31] LABS: Amylase 32 U/L (25-115); Lipase 203 U/L (73-393)
[2019-11-02 19:43] LABS: Partial Thromboplastin Time 22.7 sec (23.0-31.2)
[2019-11-02 19:49] LABS: Urine Bacteria NONE SEEN /hpf (None Seen); Urine Blood Negative /uL (Negative); Urine Mucus FEW (None Seen); Urine Specific Gravity 1.009 (1.001-1.035); Urine WBC 2 /hpf (0 - 5)
[2019-11-02] MEDS ORDERED: ZINC SULFATE 220mg CAP or TAB PO ONE (20:00)
[2019-11-02] MEDS ORDERED: ASCORBIC ACID 500 MG TAB PO ONE (20:00)
[2019-11-02] MEDS ORDERED: cefTRIAXone 1GM/50ML D5W 50 ML IV ONE (20:30)
[2019-11-02] MEDS ORDERED: ACETAMINOPHEN 325 MG TAB PO PRN (20:45)
[2019-11-02] MEDS ORDERED: ALBUTEROL SULF 2.5 MG/0.5ML(0.5%) NEB SOLN NEB PRN (20:45)
[2019-11-02] MEDS ORDERED: ONDANSETRON HCL 4 MG/2 ML VIAL IV PRN (20:45)
[2019-11-02] MEDS ORDERED: MORPHINE SULF INJ 2 MG/ML SYRINGE 1ML IV PRN (20:45)
[2019-11-02] MEDS ORDERED: DOCUSATE SOD 100 MG CAP PO PRN (20:45)
[2019-11-02] MEDS ORDERED: DEXTROSE (50%) 50ML SYRG IV PRN (20:45)
[2019-11-02] MEDS ORDERED: HYDROcodone-ACET 5/325MG TAB PO PRN (20:45)
[2019-11-02 21:02] VITALS: BP 123/51
[2019-11-02 21:39] VITALS: BP 151/83
[2019-11-03] MEDS ORDERED: InsuLIN REG 1unit/0.01ml Soln (100units/ml) SC SCH
[2019-11-03] MEDS ORDERED: ACCU-CHEK COMFORT CURVE STRIP VI SCH
[2019-11-03] MEDS ORDERED: PANTOPRAZOLE 40 MG/10 ML VIAL INJ IV SCH (10:00)
[2019-11-03] MEDS ORDERED: AZITHROMYCIN 250 MG TAB PO SCH (10:00)
[2019-11-03] MEDS ORDERED: cefTRIAXone 1GM/50ML D5W 50 ML IV SCH (10:00)
[2019-11-03] MEDS ORDERED: ATORVASTATIN 20 MG TAB PO SCH (18:00)
== END 2019-11-02 22:09 | disposition left against medical advice (07) | DRG 690 ==
LOC: ER 16:42 → OVERFLOW 16:43
PROVIDERS: ADMIT Hospitalist; ATTEND Hospitalist
DX: N30.00 Acute cystitis without hematuria (principal); E11.9 Type 2 diabetes mellitus without complications; Z53.29 Procedure and treatment not carried out because of patient's decision for other reasons; Z20.828 Contact with and (suspected) exposure to other viral communicable diseases; I10 Essential (primary) hypertension; E07.9 Disorder of thyroid, unspecified; F41.9 Anxiety disorder, unspecified; Z90.710 Acquired absence of both cervix and uterus; Z90.49 Acquired absence of other specified parts of digestive tract; Z98.51 Tubal ligation status
CPT/HCPCS: 36415; 71045; 74176; 80053; 81001; 82150; 83605; 83690; 83735; 84484; 85025; 85610; 85730; 87040; 87086; 87426; 93005; G0378; J2405

== ENCOUNTER → 2019-11-03 | Emergency (ER) | payer MEDICARE ==
[~2019-11-03] VITALS: Ht 165.1 cm; Wt 77.1 kg
[~2019-11-03] MED LIST changes: +ALUM & MAG HYDROX-SIMETH LIQ(MAALOX) 30 ML PO ONE; +DONNATAL 5ml ORAL Elix (BELLADONNA ALK-PHENOBARB) PO ONE; +FAMOTIDINE 20 MG TAB PO ONE; +LIDOCAINE VISCOUS 2% 15ML UD PO ONE
[2019-11-03 14:56] VITALS: BP 164/85
== END | disposition home or self-care (01) ==
LOC: ER 13:46
DX: R10.13 Epigastric pain (principal); R74.8 Abnormal levels of other serum enzymes; R09.89 Other specified symptoms and signs involving the circulatory and respiratory systems; E11.9 Type 2 diabetes mellitus without complications; I10 Essential (primary) hypertension; E07.9 Disorder of thyroid, unspecified

== ENCOUNTER 2020-08-11 14:20 | Emergency (ER) | payer MEDICARE ==
[~2020-08-11] VITALS: Ht 165.1 cm; Wt 66.2 kg
[~2020-08-11 14:20] MED LIST changes: -ALUM & MAG HYDROX-SIMETH LIQ(MAALOX) 30 ML PO ONE; -DONNATAL 5ml ORAL Elix (BELLADONNA ALK-PHENOBARB) PO ONE; -FAMOTIDINE 20 MG TAB PO ONE; -LIDOCAINE VISCOUS 2% 15ML UD PO ONE
[2020-08-11 14:35] VITALS: BP 155/60
== END 2020-08-11 16:44 | disposition left against medical advice (07) ==
LOC: ER 14:20
DX: R53.1 Weakness (principal); R47.9 Unspecified speech disturbances; I10 Essential (primary) hypertension; E11.9 Type 2 diabetes mellitus without complications; E78.5 Hyperlipidemia, unspecified; Z90.49 Acquired absence of other specified parts of digestive tract; Z90.710 Acquired absence of both cervix and uterus; Z79.82 Long term (current) use of aspirin; Z79.899 Other long term (current) drug therapy
CPT/HCPCS: 70450; 93005

== ENCOUNTER → 2023-03-27 | Outpatient (CLI) | payer OTHER ==
[~2023-03-27] MED LIST changes: +GABA-1308 PO; -GABA100C9 PO
[2023-03-27 09:06] LABS: Basophils # (auto) 0 10 ^3/uL (0-0.2); Basophils % (auto) 0.8 % (0.0-2.0); Eosinophils # (auto) 0.1 10 ^3/uL (0-0.8); Eosinophils % (auto) 1.7 % (0.0-7.0); Hematocrit 36.3 % (36.0-46.0); Hemoglobin 11.9 g/dL (12.2-16.2); Lymphocytes # (auto) 2.7 10 ^3/uL (0.4-5.4); Lymphocytes % (auto) 47.3 % (10.0-50.0); Mean Corpuscular Hemoglobin 30.1 pg (28.0-32.0); Mean Corpuscular Hgb Conc. 32.7 g/dL (32.0-36.0); Monocytes # (auto) 0.3 10 ^3/uL (0-1.3); Monocytes % (auto) 5.4 % (0.0-12.0); Neutrophils # (auto) 2.6 10 ^3/uL (1.6-8.6); Neutrophils % (auto) 44.8 % (37.0-80.0); Nucleated Red Blood Cells % 0.1 %; Red Blood Cells 3.95 10^6/uL (4.0-5.20); Red Cell Distribution Width 15.4 % (11.8-14.3); White Blood Cell 5.7 10^3/uL (4.4-10.8)
[2023-03-27 09:12] LABS: Urine Blood Negative /uL (Negative); Urine Clarity Clear (Clear); Urine Color Colorless (Yellow); Urine Protein, UAD Negative (Negative); Urine Specific Gravity 1.009 (1.001-1.035); Urine Urobilinogen Normal (Negative)
[2023-03-27 10:08] LABS: Alanine Aminotransferase 64 U/L (7-40); Albumin 4.7 g/dL (3.2-4.8); Alkaline Phosphatase 77 U/L (46-116); Anion Gap 7 (5-15); Aspartate Aminotransferase 56 U/L (13-40); BUN/Creatinine Ratio 9.5 (10.0-20.0); Bilirubin, Total 0.8 mg/dL (0.2-1.0); Blood Urea Nitrogen 9 mg/dL (9-23); Calcium 10.2 mg/dL (8.5-10.1); Carbon Dioxide 28 mmol/L (20-30); Chloride 104 mmol/L (98-107); Cholesterol 368 mg/dL (< 200); Glucose 103 mg/dL (74-106); HDL Cholesterol 69 mg/dL (40-59); LDL Cholesterol 271 mg/dL (< 100); Potassium 3.9 mmol/L (3.5-5.1); Sodium 139 mmol/L (136-145); Total Protein 7.7 g/dL (5.7-8.2); Triglycerides 158 mg/dL (< 150)
[2023-03-27 11:49] LABS: Free T4 (Free Thyroxine) 0.24 ng/dL (0.89-1.76)
== END | disposition home or self-care (01) ==
LOC: LAB 08:42
DX: E03.9 Hypothyroidism, unspecified (principal); R03.0 Elevated blood-pressure reading, without diagnosis of hypertension; R42 Dizziness and giddiness; Z86.39 Personal history of other endocrine, nutritional and metabolic disease
CPT/HCPCS: 36415; 80053; 80061; 81003; 82306; 82607; 83036; 84439; 84443; 85025

== ENCOUNTER → 2023-08-23 | Outpatient (CLI) | payer OTHER ==
[~2023-08-23] MED LIST changes: -GLIP5TAB12 PO; +GLIP5TAB21 PO
[2023-08-23 09:07] LABS: Basophils # (auto) 0.1 10 ^3/uL (0-0.2); Basophils % (auto) 1.1 % (0.0-2.0); Eosinophils # (auto) 0.1 10 ^3/uL (0-0.8); Eosinophils % (auto) 1.4 % (0.0-7.0); Hematocrit 37.1 % (36.0-46.0); Hemoglobin 12.3 g/dL (12.2-16.2); Lymphocytes # (auto) 2.3 10 ^3/uL (0.4-5.4); Lymphocytes % (auto) 39.8 % (10.0-50.0); Mean Corpuscular Hemoglobin 29.3 pg (28.0-32.0); Mean Corpuscular Hgb Conc. 33.2 g/dL (32.0-36.0); Mean Corpuscular Volume 88.1 fL (80.0-100.0); Monocytes # (auto) 0.6 10 ^3/uL (0-1.3); Monocytes % (auto) 9.5 % (0.0-12.0); Neutrophils # (auto) 2.8 10 ^3/uL (1.6-8.6); Neutrophils % (auto) 48.2 % (37.0-80.0); Nucleated Red Blood Cells % 0.1 %; Red Blood Cells 4.21 10^6/uL (4.0-5.20); White Blood Cell 5.8 10^3/uL (4.4-10.8)
[2023-08-23 09:41] LABS: Alanine Aminotransferase 23 U/L (7-40); Alkaline Phosphatase 91 U/L (46-116); Anion Gap 6 (5-15); BUN/Creatinine Ratio 15.5 (10.0-20.0); Blood Urea Nitrogen 13 mg/dL (9-23); Calcium 10.3 mg/dL (8.5-10.1); Carbon Dioxide 28 mmol/L (20-30); Chloride 105 mmol/L (98-107); Glucose 91 mg/dL (74-106); Sodium 139 mmol/L (136-145); Triglycerides 110 mg/dL (< 150)
[2023-08-23 09:42] LABS: Albumin 4.6 g/dL (3.2-4.8); Aspartate Aminotransferase 21 U/L (13-40); LDL Cholesterol 133 mg/dL (< 100)
[2023-08-23 09:43] LABS: Bilirubin, Total 0.7 mg/dL (0.2-1.0); Cholesterol 212 mg/dL (< 200); HDL Cholesterol 67 mg/dL (40-59); Total Protein 7.5 g/dL (5.7-8.2)
[2023-08-23 10:23] LABS: Creatinine, Urine 44.68 mg/dL (30.0-125.0)
== END | disposition home or self-care (01) ==
LOC: LAB 08:28
DX: I10 Essential (primary) hypertension (principal); E78.5 Hyperlipidemia, unspecified; E03.9 Hypothyroidism, unspecified
CPT/HCPCS: 36415; 80053; 80061; 82043; 82306; 82570; 83036; 84439; 84443; 85025

== ENCOUNTER → 2023-11-24 | Outpatient (CLI) | payer OTHER ==
[~2023-11-24] MED LIST changes: -LEV100T PO; +LEVO-849 PO
[2023-11-24 09:30] LABS: Urine Bacteria None Seen /hpf (None Seen)
[2023-11-24 09:41] LABS: Basophils # (auto) 0 10 ^3/uL (0-0.2); Basophils % (auto) 0.5 % (0.0-2.0); Eosinophils # (auto) 0.1 10 ^3/uL (0-0.8); Eosinophils % (auto) 1.5 % (0.0-7.0); Hematocrit 38.8 % (36.0-46.0); Hemoglobin 13.3 g/dL (12.2-16.2); Lymphocytes # (auto) 2.2 10 ^3/uL (0.4-5.4); Lymphocytes % (auto) 30.4 % (10.0-50.0); Mean Corpuscular Hemoglobin 30.1 pg (28.0-32.0); Mean Corpuscular Hgb Conc. 34.4 g/dL (32.0-36.0); Mean Corpuscular Volume 87.6 fL (80.0-100.0); Monocytes # (auto) 0.5 10 ^3/uL (0-1.3); Monocytes % (auto) 6.5 % (0.0-12.0); Neutrophils # (auto) 4.4 10 ^3/uL (1.6-8.6); Neutrophils % (auto) 61.1 % (37.0-80.0); Platelet Count (auto) 242 10^3/uL (140-450); Red Blood Cells 4.43 10^6/uL (4.0-5.20); Red Cell Distribution Width 14.5 % (11.8-14.3); White Blood Cell 7.2 10^3/uL (4.4-10.8)
[2023-11-24 10:04] LABS: Triglycerides 95 mg/dL (< 150)
[2023-11-24 10:05] LABS: LDL Cholesterol 70 mg/dL (< 100)
[2023-11-24 10:06] LABS: Cholesterol 154 mg/dL (< 200); HDL Cholesterol 72 mg/dL (40-59)
[2023-11-24 10:20] LABS: Urine Blood Negative /uL (Negative); Urine Clarity Clear (Clear); Urine Color Light-Yellow (Yellow); Urine Protein, UAD Negative (Negative); Urine Specific Gravity 1.012 (1.001-1.035); Urine Urobilinogen Normal (Negative); Urine WBC <1 /hpf (0 - 5); Urine pH 6.5 (5.0-9.0)
== END | disposition home or self-care (01) ==
LOC: LAB 09:10
DX: I10 Essential (primary) hypertension (principal); E78.5 Hyperlipidemia, unspecified; E11.40 Type 2 diabetes mellitus with diabetic neuropathy, unspecified; E03.9 Hypothyroidism, unspecified
CPT/HCPCS: 36415; 80061; 81001; 83036; 84439; 84443; 85025

== ENCOUNTER → 2024-02-23 | Outpatient (CLI) | payer OTHER ==
[2024-02-23 07:24] LABS: Urine Bacteria None Seen /hpf (None Seen)
[2024-02-23 07:37] LABS: Urine Blood Negative /uL (Negative); Urine Clarity Clear (Clear); Urine Color Light-Yellow (Yellow); Urine Protein, UAD Negative (Negative); Urine Specific Gravity 1.012 (1.001-1.035); Urine Squamous Epithelial Cell FEW /hpf (<5); Urine Urobilinogen Normal (Negative); Urine WBC <1 /hpf (0 - 5); Urine pH 5.5 (5.0-9.0)
[2024-02-23 07:57] LABS: Basophils # (auto) 0 10 ^3/uL (0-0.2); Basophils % (auto) 0.6 % (0.0-2.0); Eosinophils # (auto) 0.1 10 ^3/uL (0-0.8); Hematocrit 39.6 % (36.0-46.0); Hemoglobin 13.2 g/dL (12.2-16.2); Lymphocytes # (auto) 2.5 10 ^3/uL (0.4-5.4); Lymphocytes % (auto) 42.4 % (10.0-50.0); Mean Corpuscular Hemoglobin 29.1 pg (28.0-32.0); Mean Corpuscular Hgb Conc. 33.3 g/dL (32.0-36.0); Mean Corpuscular Volume 87.3 fL (80.0-100.0); Monocytes # (auto) 0.5 10 ^3/uL (0-1.3); Monocytes % (auto) 7.6 % (0.0-12.0); Neutrophils # (auto) 2.8 10 ^3/uL (1.6-8.6); Neutrophils % (auto) 47.4 % (37.0-80.0); Nucleated Red Blood Cells % 0.1 %; Platelet Count (auto) 231 10^3/uL (140-450); Red Blood Cells 4.54 10^6/uL (4.0-5.20); Red Cell Distribution Width 13.5 % (11.8-14.3); White Blood Cell 5.9 10^3/uL (4.4-10.8)
[2024-02-23 08:04] LABS: Alanine Aminotransferase 15 U/L (7-40); Albumin 4.2 g/dL (3.2-4.8); Alkaline Phosphatase 106 U/L (46-116); Anion Gap 7 (5-15); Aspartate Aminotransferase 16 U/L (13-40); BUN/Creatinine Ratio 17.3 (10.0-20.0); Blood Urea Nitrogen 14 mg/dL (9-23); Carbon Dioxide 29 mmol/L (20-31); Cholesterol 186 mg/dL (< 200); HDL Cholesterol 59 mg/dL (40-59); Potassium 4.3 mmol/L (3.5-5.1); Sodium 144 mmol/L (136-145); Triglycerides 76 mg/dL (< 150)
[2024-02-23 08:05] LABS: Bilirubin, Total 0.7 mg/dL (0.2-1.0)
[2024-02-23 08:10] LABS: Calcium 10.6 mg/dL (8.7-10.4); Chloride 108 mmol/L (98-107); Glucose 121 mg/dL (74-106); LDL Cholesterol 120 mg/dL (< 100)
== END | disposition home or self-care (01) ==
LOC: LAB 07:11
DX: I10 Essential (primary) hypertension (principal); E11.9 Type 2 diabetes mellitus without complications; E03.9 Hypothyroidism, unspecified; E78.5 Hyperlipidemia, unspecified
CPT/HCPCS: 36415; 80053; 80061; 81001; 83036; 84439; 84443; 85025

== ENCOUNTER → 2024-10-04 | Outpatient (CLI) | payer OTHER ==
[2024-10-04 09:14] LABS: Urine Protein, UAD Negative (Negative)
[2024-10-04 09:42] LABS: Alanine Aminotransferase 28 U/L (7-40); Albumin 4.6 g/dL (3.2-4.8); Alkaline Phosphatase 114 U/L (46-116); Anion Gap 9 (5-15); BUN/Creatinine Ratio 14.3 (10.0-20.0); Blood Urea Nitrogen 13 mg/dL (9-23); Calcium 10.1 mg/dL (8.7-10.4); Carbon Dioxide 28 mmol/L (20-31); HDL Cholesterol 57 mg/dL (40-59); Potassium 4.6 mmol/L (3.5-5.1); Sodium 144 mmol/L (136-145); Total Protein 7.3 g/dL (5.7-8.2); Triglycerides 83 mg/dL (< 150)
[2024-10-04 09:43] LABS: Bilirubin, Total 0.8 mg/dL (0.2-1.0)
[2024-10-04 09:53] LABS: Chloride 107 mmol/L (98-107); Cholesterol 225 mg/dL (< 200); Glucose 125 mg/dL (74-106)
[2024-10-04 10:59] LABS: Free T4 (Free Thyroxine) 1.57 ng/dL (0.89-1.76)
== END | disposition home or self-care (01) ==
LOC: LAB 08:41
PROVIDERS: ATTEND Nurse Practitioner Family
DX: E11.9 Type 2 diabetes mellitus without complications (principal); E03.9 Hypothyroidism, unspecified; E78.5 Hyperlipidemia, unspecified; E55.9 Vitamin D deficiency, unspecified
CPT/HCPCS: 36415; 80053; 80061; 81001; 82306; 82607; 83036; 84439; 84443

== ENCOUNTER 2024-12-26 08:36 | Outpatient (CLI) | payer OTHER ==
[2024-12-26 09:05] LABS: Hematocrit 39.7 % (36.0-46.0); Hemoglobin 13.3 g/dL (12.2-16.2); Mean Corpuscular Hemoglobin 28.4 pg (28.0-32.0); Mean Corpuscular Volume 84.4 fL (80.0-100.0); Nucleated Red Blood Cells % 0.3 %
[2024-12-26 09:35] LABS: Alanine Aminotransferase 20 U/L (7-40); Anion Gap 11 (5-15); BUN/Creatinine Ratio 14.0 (10.0-20.0); Blood Urea Nitrogen 12 mg/dL (9-23); Calcium 10.0 mg/dL (8.7-10.4); Carbon Dioxide 27 mmol/L (20-31); Chloride 105 mmol/L (98-107); Potassium 4.0 mmol/L (3.5-5.1); Sodium 143 mmol/L (136-145); Total Protein 7.5 g/dL (5.7-8.2); Triglycerides 102 mg/dL (< 150)
[2024-12-26 09:36] LABS: Bilirubin, Total 0.9 mg/dL (0.2-1.0); HDL Cholesterol 59 mg/dL (40-59)
[2024-12-26 09:39] LABS: Alkaline Phosphatase 139 U/L (46-116); Cholesterol 250 mg/dL (< 200); Glucose 126 mg/dL (74-106)
[2024-12-26 09:41] LABS: Albumin 4.4 g/dL (3.2-4.8)
== END 2024-12-26 17:00 | disposition home or self-care (01) ==
LOC: LAB 08:36
PROVIDERS: ATTEND Nurse Practitioner Family
DX: I10 Essential (primary) hypertension (principal); E78.5 Hyperlipidemia, unspecified; E03.9 Hypothyroidism, unspecified; E55.9 Vitamin D deficiency, unspecified
CPT/HCPCS: 36415; 80053; 80061; 82306; 83036; 84439; 84443; 85025